=== PATIENT | female | born 1970 | race Caucasian/White ===

== ENCOUNTER → 2018-10-24 13:30 | Oncology outpatient (ONC) | payer MEDICAID, SELFPAY ==
--- NOTE | 2018-08-15 08:14 | ONC.CONS ---
History of Present Illness - Data of Consult Consult date: 08/15/18 Requesting Physician: Dr. Ruby Cesar Primary Care Provider: Ruby Cesar MD - Consult Narrative Reason for consult: Right breast ER positive OR positive HER2 negative cancer. Narrative: Carole Leggett is a 48 year old female without other significant medical problems. She came in here today accompanied by her friend Carole. Patient said that about a year ago (2016), patient noticed a dent on the right breast, most visible when leaning forward. However she did not seek any medical attention because of lack of medical insurance. Recently she read about the meaning of the dent of the breast online and decided to seek medical attention. She is now enrolled in [employer]. She was seen by Dr. Ruby Cesar at [facility]. On July 18, 2018 patient underwent digital mammography with tomosynthesis and diagnostic bilateral/breast ultrasound study at the [facility] in [facility]. The mammogram showed a 1.6 cm spiculated mass in the upper inner right breast, anterior depth. Associated skin retraction was noted. A smoothly contoured 13 mm nodule present in the upper outer right breast. On the left, an 11 mm obscured nodule present in the central lateral left breast. And the ultrasound study showed that on the right side, there is an irregular hypoechoic solid mass with increased vascularity 2 o'clock right breast, areolar margin, 1.8 x 1.3 x 1.0 cm. At a distance 2.8 cm lateral to this mass, a 2nd hypoechoic mass with a caustic shadowing present, 12 o'clock radians measuring 5.1 mm. In the upper outer right breast, a unitlocular anechoic cyst present measuring 1.4 x 1.6 x 0.6 cm. A smaller cyst present at the 7 o'clock right breast measuring 8 mm. On the left side, a benign uniloculated anechoic cyst present at 2 o'clock measuring 1.4 x 1.1 x 0.5 cm. No solid masses. On July 25, 2018, patient underwent ultrasound-guided core biopsy of the right breast lesion. The final diagnosis from biopsy of the lesion at 2 o'clock showed invasive adenocarcinoma, low grade (4/9), 8 mm in greatest length, without lymphovascular invasion, with presence of ductal carcinoma in-situ which is solid type, with low to intermediate nuclear grade, without comedonecrosis. Immunohistochemistry of the invasive component showed ER positive (strong intensity 3+, more than 90%), OR positive (3+, strong 60%), Ki 67 high (40%) and HER2 by IHC equivocal (2+, moderate partial membrane staining in 50% cells), and HER2 by FISH negative for gene amplification (HER2:CEP17 ratio 1.2, 4.15 mean HER2 signals per nucleus). Biopsy from 12 o'clock showed benign breast tissue and negative for in-situ or invasive malignancy. Clinically patient denies any fatigue, musculoskeletal pain, shortness of breath or chest pain. She denies any abdominal pain, diarrhea, or constipation. Patient does report weight loss over the past 1 month which she attributed to walking as well as cutting out lot of junk food and is veggi. Patient presents here today to establish care. She has already scheduled to see Dr. Pacheco today, and to see Dr. Herrera next week. Vera Ousna, DO Patient reports pain?: No Home Medications and Allergies Home Medications Medication Instructions Recorded Confirmed Type [id number] 08/15/18 History Allergies Allergy/AdvReac Type Severity Reaction Status Date / Time No Known Drug Allergies Allergy Verified 08/15/18 08:22 Medical History - Medical, Surgical, Family History Surgical History: Surgical History (Last Reviewed 08/15/18 @ 09:07 by Cindy Son MD) History of third molar tooth extraction Status post surgery Onset Date: 08/05/15 Status post tubal ligation Family History: Family History (Last Reviewed 08/15/18 @ 09:07 by Cindy Son MD) Grandmother Colon cancer Grandfather Esophageal cancer Review of Systems All systems PM: reviewed and no additional remarkable complaints except as stated Exam Vital signs: Temperature 98.9? pulse rate 67, respiratory rate 18, blood pressure 132/77, oxygenation 100% on room air, weight 77.0 kilos, height 165.0 cm, ECOG 0 Narrative: Constitutional: Well developed, well nourished, not in any acute respiratory distress, average body habitus, well groomed, pleasant and cooperative, accompanied by her friend Carole. HEENT: Normocephalic atraumatic. Extraocular muscle movement intact. Pupils equal, round, and reactive to light and accommodations (PERRLA). Anicteric sclera. moderate hearing difficulty; Oral mucus membrane moist and without ulcers. Neck: Supple, symmetrical, and tracheal midline; No palpable thyromegaly and no palpable lymph nodes. Respiratory: No use of accessory muscles. Clear to auscultation, and no wheezes or rales or rubs. Cardiovascular: Regular rate and rhythm, S1 and S2 normal, no murmurs gallops or rubs. No JVD. No pitting edema of lower extremities. Abdomen: Soft, nontender, non-distended, bowel sounds normal, no palpable organomegaly, no hernia, no palpable masses. Lower extremities: No palpable pedal edema. Lymphatic: no palpable lymph nodes in the neck, axillae, or groins. Musculoskeletal: normal gait and station, no clubbing, no cyanosis, no pitting edema. Skin: no rashes, no ulcers, no petechiae Neurological: Awake and alert and oriented x3. CN II-XII grossly intact. No focal motor or sensory deficit. Psychiatric: Good judgment, good insight, normal affect, normal thought process, cooperative, no depression, no anxiety. Breast exam: right: a linear clear dent across from nipple in a superior and inner direction, about 5 cm in length. Biopsy needle site note. All right breast nodular feeling. No enlarged lymph nodes in the right axilla; left side: no nipple retraction, no skin changes, no palpable nodules or masses, no palpable lymph nodes in the left axilla. All physical examinations are chaperoned. Results - Labs No lab results to review today. - Imaging Additional studies: Procedures BILAT ENDOS OCC TUBE NEC (11/22/09) Laparoscopy (08/05/15) Other dilation and curettage (08/05/15) Assessment and Plan (1) Breast cancer, right breast I explained to the patient about her recently diagnosed right breast invasive ductal carcinoma. I pointed out that based on the available information, she has a stage IA (cT1c cN0 cM0), ER pos, OR pos, HER neg, Node neg. I described that for early stage breast cancer, the sequence of management will include surgical resection (mastectomy versus lumpectomy), with/without chemotherapy, and with/without radiation treatment (depending on surgery). I specifically talked with her about the need for chemotherapy. She may or may not need chemotherapy based on the analysis the risk of recurrence. We usually will do 21-gene recurrence score (Oncotype DX ). If the score is high enough, for example, 26 or higher, adjuvant chemotherapy will be needed. If the score is low enough, for example, 20 or lower, chemotherapy is not indicated. If the score falls between 21 and 25, we would discuss further about the chemotherapy. All above is based on the recent [employer] study results. Patient has already scheduled to visit to see Dr. Pacheco today, and to see Dr. Mario Herrera next week. I will have her come back about 2 weeks after the surgery for further discussion.
--- NOTE | 2018-08-15 08:19 | P.CONONC_ITS ---
History of Present Illness - Data of Consult Consult date: 08/15/18 Requesting Physician: Dr. Ruby Cesar Primary Care Provider: Ruby Cesra MD - Consult Narrative Reason for consult: Right breast ER positive WA positive HER2 negative cancer. Narrative: Carole Leggett is a 48 year old female without other significant medical problems. She came in here today accompanied by her friend Carole. Patient said that about a year ago (2016), patient noticed a dent on the right breast, most visible when leaning forward. However she did not seek any medical attention because of lack of medical insurance. Recently she read about the meaning of the dent of the breast online and decided to seek medical attention. She is now enrolled in [employer]. She was seen by Dr. Ruby Cesar at [facility]. On July 18, 2018 patient underwent digital mammography with tomosynthesis and diagnostic bilateral/breast ultrasound study at the [facility] in [facility]. The mammogram showed a 1.6 cm spiculated mass in the upper inner right breast, anterior depth. Associated skin retraction was noted. A smoothly contoured 13 mm nodule present in the upper outer right breast. On the left, an 11 mm obscured nodule present in the central lateral left breast. And the ultrasound study showed that on the right side, there is an irregular hypoechoic solid mass with increased vascularity 2 o'clock right breast, areolar margin, 1.8 x 1.3 x 1.0 cm. At a distance 2.8 cm lateral to this mass, a 2nd hypoechoic mass with a caustic shadowing present, 12 o'clock radians measuring 5.1 mm. In the upper outer right breast, a unitlocular anechoic cyst present measuring 1.4 x 1.6 x 0.6 cm. A smaller cyst present at the 7 o'clock right breast measuring 8 mm. On the left side, a benign uniloculated anechoic cyst present at 2 o'clock measuring 1.4 x 1.1 x 0.5 cm. No solid masses. On July 25, 2018, patient underwent ultrasound-guided core biopsy of the right breast lesion. 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 Immunohistochemistry of the invasive component showed ER positive (strong intensity 3+, more than 90%), WA positive (3+, strong 60%), Ki 67 high (40%) and HER2 by IHC equivocal (2+, moderate partial membrane staining in 50% cells), and HER2 by FISH negative for gene amplification (HER2:CEP17 ratio 1.2, 4.15 mean HER2 signals per nucleus). Biopsy from 12 o'clock showed benign breast tissue and negative for in-situ or invasive malignancy. Clinically patient denies any fatigue, musculoskeletal pain, shortness of breath or chest pain. She denies any abdominal pain, diarrhea, or constipation. Patient does report weight loss over the past 1 month which she attributed to walking as well as cutting out lot of junk food and is veggi. Patient presents here today to establish care. She has already scheduled to see Dr. Pacheco today, and to see Dr. Herrera next week. Vera Osuna, DO Patient reports pain?: No Home Medications and Allergies Home Medications Medication Instructions Recorded Confirmed Type [id number] 08/15/18 History Allergies Allergy/AdvReac Type Severity Reaction Status Date / Time No Known Drug Allergies Allergy Verified 08/15/18 08:22 Medical History - Medical, Surgical, Family History Surgical History: Surgical History (Last Reviewed 08/15/18 @ 09:07 by Cindy Son MD) History of third molar tooth extraction Status post surgery Onset Date: 08/05/15 Status post tubal ligation Family History: Family History (Last Reviewed 08/15/18 @ 09:07 by Cindy Son MD) Grandmother Colon cancer Grandfather Esophageal cancer Review of Systems All systems PM: reviewed and no additional remarkable complaints except as stated Exam Vital signs: Temperature 98.9? pulse rate 67, respiratory rate 18, blood pressure 132/77, oxygenation 100% on room air, weight 77.0 kilos, height 165.0 cm, ECOG 0 Narrative: Constitutional: Well developed, well nourished, not in any acute respiratory distress, average body habitus, well groomed, pleasant and cooperative, accompanied by her friend Carole. HEENT: Normocephalic atraumatic. Extraocular muscle movement intact. Pupils equal, round, and reactive to light and accommodations (PERRLA). Anicteric sclera. moderate hearing difficulty; Oral mucus membrane moist and without ulcers. Neck: Supple, symmetrical, and tracheal midline; No palpable thyromegaly and no palpable lymph nodes. Respiratory: No use of accessory muscles. Clear to auscultation, and no wheezes or rales or rubs. Cardiovascular: Regular rate and rhythm, S1 and S2 normal, no murmurs gallops or rubs. No JVD. No pitting edema of lower extremities. Abdomen: Soft, nontender, non-distended, bowel sounds normal, no palpable organomegaly, no hernia, no palpable masses. Lower extremities: No palpable pedal edema. Lymphatic: no palpable lymph nodes in the neck, axillae, or groins. Musculoskeletal: normal gait and station, no clubbing, no cyanosis, no pitting edema. Skin: no rashes, no ulcers, no petechiae Neurological: Awake and alert and oriented x3. CN II-XII grossly intact. No focal motor or sensory deficit. Psychiatric: Good judgment, good insight, normal affect, normal thought process , cooperative, no depression, no anxiety. Breast exam: right: a linear clear dent across from nipple in a superior and inner direction, about 5 cm in length. Biopsy needle site note. All right breast nodular feeling. No enlarged lymph nodes in the right axilla; left side: no nipple retraction, no skin changes, no palpable nodules or masses, no palpable lymph nodes in the left axilla. All physical examinations are chaperoned. Results - Labs No lab results to review today. - Imaging Additional studies: Procedures BILAT ENDOS OCC TUBE NEC (11/22/09) Laparoscopy (08/05/15) Other dilation and curettage (08/05/15) Assessment and Plan (1) Breast cancer, right breast I explained to the patient about her recently diagnosed right breast invasive ductal carcinoma. I pointed out that based on the available information, she has a stage IA (cT1c cN0 cM0), ER pos, WA pos, HER neg, Node neg. I described that for early stage breast cancer, the sequence of management will include surgical resection (mastectomy versus lumpectomy), with/without chemotherapy, and with/without radiation treatment (depending on surgery). I specifically talked with her about the need for chemotherapy. She may or may not need chemotherapy based on the analysis the risk of recurrence. We usually will do 21-gene recurrence score (Oncotype DX ). If the score is high enough, for example, 26 or higher, adjuvant chemotherapy will be needed. If the score is low enough, for example, 20 or lower, chemotherapy is not indicated. If the score falls between 21 and 25, we would discuss further about the chemotherapy. All above is based on the recent [employer] study results. Patient has already scheduled to visit to see Dr. Pacheco today, and to see Dr. Mario Herrera next week. I will have her come back about 2 weeks after the surgery for further discussion.
[2018-08-15 09:00] VITALS: BP 132/77; PULSE 67; RESP 18; TEMP 37.2; O2SAT 100
--- NOTE | 2018-08-15 09:46 | ONC.NAV ---
Description: New Breast Pt Intro Activity: Met with pt only briefly after her initial provider consult visit today. Pt resides on [facility], and has been in contact already with the Breast Navigator at [facility], and will be meeting with the surgeon there later this morning. BIBLICAL LANGUAGES PROFESSOR briefly discussed the resources that we have for [place] patients, including the Medical Priority Boarding pass, the lodging program, taxi service from the [employer], and the Medical Relief Fund. Provided the Navigation service card, and agreed to meet again when she returns to clinic, in order to continue assessment of pt's coping and support needs. Plan: BIBLICAL LANGUAGES PROFESSOR will f/u with completing a Medical Priority Boarding Pass and email it to her later today.
--- NOTE | 2018-08-18 14:21 | ONC.NAV ---
Description: [employer] Tx Plan Tracking Form Activity: Completed this form and faxed back to [employer].
--- NOTE | 2018-08-19 09:05 | ONC.NAV ---
Description: [facility] Medical Priority Boarding Pass Activity: CERTIFIED ALCOHOL COUNSELOR emailed pt her Patient Copy of the Medical Priority Boarding pass. No further needs identified at this time.
--- NOTE | 2018-09-25 12:34 | ONC.SCHED ---
PATHOLOGY PROGRESS: Request for Oncotype submtted by Cristel @ [facility] on 09/22/18. Await results.
--- NOTE | 2018-09-26 09:00 | ONC.SCHED ---
PATHOLOGY PROGRESS: Received Oncotype DX BRCA 1&2 Results 09/26/18. Order complete.
[2018-09-26 09:28] LABS: Add Manual Diff / Slide Review NO; Basophils Percent Auto 0.6 % (0-2); Hematocrit 33.9 % (36-46); Hemoglobin 11.5 g/dL (12.0-16.0); Lymphocytes Percent Auto 15.9 % (25-40); Mean Corpuscular HGB Conc 33.9 % (30-36); Mean Corpuscular Hemoglobin 30.5 PG (26-34); Monocytes Percent Auto 9.5 % (3-14); Neutrophils Absolute Auto 5000 /uL (3000-5900); Platelet Count 232 X10^3/uL (150-400); Red Blood Cell Count 3.76 X10^6/uL (4.0-5.2); White Blood Cell Count 6.8 X10^3/uL (4.5-11.0)
[2018-09-26 09:50] LABS: Alanine Aminotransferase 17 IU/L (9-52); Albumin 4.1 g/dL (3.5-5.0); Albumin Globulin Ratio 1.5 (1.0-2.8); Alkaline Phosphatase 45 U/L (38-126); Aspartate Aminotransferase 18 IU/L (14-36); Bilirubin Total 0.3 mg/dL (0.2-1.3); Blood Urea Nitrogen 10 mg/dL (7-17); Carbon Dioxide 28 mmol/L (22-32); Chloride 104 mmol/L (98-107); Estimated Glomerular Filt Rate > 60.0 mL/min (>60); Globulin 2.7 g/dL (1.7-4.1); Glucose 94 mg/dL (70-100); HEMOLYSIS < 15 (0-50); Potassium 4.2 mmol/L (3.4-5.1); Sodium 142 mmol/L (137-145); Total Protein 6.8 g/dL (6.3-8.2)
[2018-09-26 11:13] VITALS: BP 113/71; PULSE 63; RESP 16; TEMP 36.7; O2SAT 100
--- NOTE | 2018-09-26 11:21 | ONC.PN ---
PN -Subjective Interval history: Patient underwent right breast simple mastectomy with sentinel lymph node biopsy on September 09, [address] Pacheco. The final surgical pathology reviewed invasive adenocarcinoma, low grade, 1.5 x 1.4 x 1.2 cm, no DCIS, unifocal, negative margins, no lymphovascular invasion, negative sentinel lymph node, and AJCC 8th staging pT1c N0 (sentinel). Postoperatively this case was discussed at [facility]. No radiation treatment was recommended. Oncotype DX was recommended for determination of possible chemotherapy. The Oncotype DX score came back 22. Clinically patient is currently undergoing reconstruction of the right breast. No other new events. Oncological history Carole Leggett is a 48 year old female without other significant medical problems. She came in here today accompanied by her friend Carole. Patient said that about a year ago (2016), patient noticed a dent on the right breast, most visible when leaning forward. However she did not seek any medical attention because of lack of medical insurance. Recently she read about the meaning of the dent of the breast online and decided to seek medical attention. She is now enrolled in [employer]. She was seen by Dr. Ruby Cesar at [facility]. On July 18, 2018 patient underwent digital mammography with tomosynthesis and diagnostic bilateral/breast ultrasound study at the [facility] in [facility]. The mammogram showed a 1.6 cm spiculated mass in the upper inner right breast, anterior depth. Associated skin retraction was noted. A smoothly contoured 13 mm nodule present in the upper outer right breast. On the left, an 11 mm obscured nodule present in the central lateral left breast. And the ultrasound study showed that on the right side, there is an irregular hypoechoic solid mass with increased vascularity 2 o'clock right breast, areolar margin, 1.8 x 1.3 x 1.0 cm. At a distance 2.8 cm lateral to this mass, a 2nd hypoechoic mass with a caustic shadowing present, 12 o'clock radians measuring 5.1 mm. In the upper outer right breast, a unitlocular anechoic cyst present measuring 1.4 x 1.6 x 0.6 cm. A smaller cyst present at the 7 o'clock right breast measuring 8 mm. On the left side, a benign uniloculated anechoic cyst present at 2 o'clock measuring 1.4 x 1.1 x 0.5 cm. No solid masses. On July 25, 2018, patient underwent ultrasound-guided core biopsy of the right breast lesion. The final diagnosis from biopsy of the lesion at 2 o'clock showed invasive adenocarcinoma, low grade (4/9), 8 mm in greatest length, without lymphovascular invasion, with presence of ductal carcinoma in-situ which is solid type, with low to intermediate nuclear grade, without comedonecrosis. Immunohistochemistry of the invasive component showed ER positive (strong intensity 3+, more than 90%), ND positive (3+, strong 60%), Ki 67 high (40%) and HER2 by IHC equivocal (2+, moderate partial membrane staining in 50% cells), and HER2 by FISH negative for gene amplification (HER2:CEP17 ratio 1.2, 4.15 mean HER2 signals per nucleus). Biopsy from 12 o'clock showed benign breast tissue and negative for in-situ or invasive malignancy. Clinically patient denies any fatigue, musculoskeletal pain, shortness of breath or chest pain. She denies any abdominal pain, diarrhea, or constipation. Patient does report weight loss over the past 1 month which she attributed to walking as well as cutting out lot of junk food and is veggi. Patient presents here today to establish care. She has already scheduled to see Dr. Pacheco today, and to see Dr. Herrera next week. Home Medications and Allergies Home Medications Medication Instructions Recorded Confirmed Type [id number] 1 tab PO DAILY 08/15/18 09/26/18 History tamoxifen 20 mg PO DAILY 3 Days #90 tab 09/26/18 Rx Allergies Allergy/AdvReac Type Severity Reaction Status Date / Time No Known Drug Allergies Allergy Verified 08/15/18 08:22 Exam Vital signs: Last Vital Signs Temp 98.0 F 09/26/18 11:13 Pulse 63 09/26/18 11:13 Resp 16 09/26/18 11:13 BP 113/71 09/26/18 11:13 Pulse Ox 100 09/26/18 11:13 ECOG 1 Narrative: Constitutional: Well developed, well nourished, not in any acute respiratory distress, average body habitus, well groomed, pleasant and cooperative, HEENT: Normocephalic atraumatic. Extraocular muscle movement intact. Pupils equal, round, and reactive to light and accommodations (PERRLA). Anicteric sclera. moderate hearing difficulty; Oral mucus membrane moist and without ulcers. Neck: Supple, symmetrical, and tracheal midline; No palpable thyromegaly and no palpable lymph nodes. Respiratory: No use of accessory muscles. Clear to auscultation, and no wheezes or rales or rubs. Cardiovascular: Regular rate and rhythm, S1 and S2 normal, no murmurs gallops or rubs. No JVD. No pitting edema of lower extremities. Abdomen: Soft, nontender, non-distended, bowel sounds normal, no palpable organomegaly, no hernia, no palpable masses. Lower extremities: No palpable pedal edema. Lymphatic: no palpable lymph nodes in the neck, axillae, or groins. Musculoskeletal: normal gait and station, no clubbing, no cyanosis, no pitting edema. Skin: no rashes, no ulcers, no petechiae Neurological: Awake and alert and oriented x3. CN II-XII grossly intact. No focal motor or sensory deficit. Psychiatric: Good judgment, good insight, normal affect, normal thought process, cooperative, no depression, no anxiety. Breast exam: deferred Results - Labs Laboratory Last Values WBC 6.8 X10^3/uL (4.5-11.0) 09/26/18 09:17 RBC 3.76 X10^6/uL (4.0-5.2) L 09/26/18 09:17 Hgb 11.5 g/dL (12.0-16.0) L 09/26/18 09:17 Hct 33.9 % (36-46) L 09/26/18 09:17 MCV 90.0 fL (80-100) 09/26/18 09:17 MCH 30.5 PG (26-34) 09/26/18 09:17 MCHC 33.9 % (30-36) 09/26/18 09:17 RDW 14.0 % (11.6-14.8) 09/26/18 09:17 Plt Count 232 X10^3/uL (150-400) 09/26/18 09:17 Neut % (Auto) 73.0 % (50-75) 09/26/18 09:17 Lymph % (Auto) 15.9 % (25-40) L 09/26/18 09:17 [place] % (Auto) 9.5 % (3-14) 09/26/18 09:17 Eos % (Auto) 1.0 % (2-4) L 09/26/18 09:17 Baso % (Auto) 0.6 % (0-2) 09/26/18 09:17 Neut # (Auto) 5000 /uL (3087-9597) 09/26/18 09:17 Sodium 142 mmol/L (137-145) 09/26/18 09:17 Potassium 4.2 mmol/L (3.4-5.1) 09/26/18 09:17 Chloride 104 mmol/L (98-107) 09/26/18 09:17 Carbon Dioxide 28 mmol/L (22-32) 09/26/18 09:17 BUN 10 mg/dL (7-17) 09/26/18 09:17 Creatinine 0.50 mg/dL (0.52-1.04) L 09/26/18 09:17 Estimated GFR > 60.0 mL/min (>60) 09/26/18 09:17 BUN/Creatinine Ratio 20.0 (6-22) 09/26/18 09:17 Glucose 94 mg/dL (70-100) 09/26/18 09:17 Calcium 9.0 mg/dL (8.4-10.2) 09/26/18 09:17 Total Bilirubin 0.3 mg/dL (0.2-1.3) 09/26/18 09:17 AST 18 IU/L (14-36) 09/26/18 09:17 ALT 17 IU/L (9-52) 09/26/18 09:17 Alkaline Phosphatase 45 U/L (38-126) 09/26/18 09:17 Total Protein 6.8 g/dL (6.3-8.2) 09/26/18 09:17 Albumin 4.1 g/dL (3.5-5.0) 09/26/18 09:17 Globulin 2.7 g/dL (1.7-4.1) 09/26/18 09:17 Albumin/Globulin Ratio 1.5 (1.0-2.8) 09/26/18 09:17 - Imaging Additional studies: Procedures BILAT ENDOS OCC TUBE NEC (11/22/09) Laparoscopy (08/05/15) Other dilation and curettage (08/05/15) Assessment and Plan (1) Breast cancer, right breast Assessment and Plan: I explained to the patient about the Oncotype DX score. Based on the most recent [employer] study, given the low risk feature of her primary right breast cancer, I would not recommend any adjuvant chemotherapy. I talked with her that she will need endocrine treatment for a total of 5 years. She is premenopausal. I would start tamoxifen 20 mg once a day together with aspirin 81 mg once a day. I will bring the patient back for 1 month to discuss about the tolerability. If she tolerates well in the future will see the patient every 3 months.
--- NOTE | 2018-09-26 11:24 | P.PNONC_ITS ---
PN -Subjective Interval history: Patient underwent right breast simple mastectomy with sentinel lymph node biopsy on September 09, [address] Pacheco. The final surgical pathology reviewed invasive adenocarcinoma, low grade, 1.5 x 1.4 x 1.2 cm, no DCIS, unifocal, negative margins, no lymphovascular invasion, negative sentinel lymph node, and AJCC 8th staging pT1c N0 (sentinel). Postoperatively this case was discussed at [facility]. No radiation treatment was recommended. Oncotype DX was recommended for determination of possible chemotherapy. The Oncotype DX score came back 22. Clinically patient is currently undergoing reconstruction of the right breast. No other new events. Oncological history Carole Leggett is a 48 year old female without other significant medical problems. She came in here today accompanied by her friend Carole. Patient said that about a year ago (2016), patient noticed a dent on the right breast, most visible when leaning forward. However she did not seek any medical attention because of lack of medical insurance. Recently she read about the meaning of the dent of the breast online and decided to seek medical attention. She is now enrolled in [employer]. She was seen by Dr. Ruby Cesar at [facility]. On July 18, 2018 patient underwent digital mammography with tomosynthesis and diagnostic bilateral/breast ultrasound study at the [facility] in [facility]. The mammogram showed a 1.6 cm spiculated mass in the upper inner right breast, anterior depth. Associated skin retraction was noted. A smoothly contoured 13 mm nodule present in the upper outer right breast. On the left, an 11 mm obscured nodule present in the central lateral left breast. And the ultrasound study showed that on the right side, there is an irregular hypoechoic solid mass with increased vascularity 2 o'clock right breast, areolar margin, 1.8 x 1.3 x 1.0 cm. At a distance 2.8 cm lateral to this mass, a 2nd hypoechoic mass with a caustic shadowing present, 12 o'clock radians measuring 5.1 mm. In the upper outer right breast, a unitlocular anechoic cyst present measuring 1.4 x 1.6 x 0.6 cm. A smaller cyst present at the 7 o'clock right breast measuring 8 mm. On the left side, a benign uniloculated anechoic cyst present at 2 o'clock measuring 1.4 x 1.1 x 0.5 cm. No solid masses. On July 25, 2018, patient underwent ultrasound-guided core biopsy of the right breast lesion. 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 Immunohistochemistry of the invasive component showed ER positive (strong intensity 3+, more than 90%), [place] positive (3+, strong 60%), Ki 67 high (40%) and HER2 by IHC equivocal (2+, moderate partial membrane staining in 50% cells), and HER2 by FISH negative for gene amplification (HER2:CEP17 ratio 1.2, 4.15 mean HER2 signals per nucleus). Biopsy from 12 o'clock showed benign breast tissue and negative for in-situ or invasive malignancy. Clinically patient denies any fatigue, musculoskeletal pain, shortness of breath or chest pain. She denies any abdominal pain, diarrhea, or constipation. Patient does report weight loss over the past 1 month which she attributed to walking as well as cutting out lot of junk food and is veggi. Patient presents here today to establish care. She has already scheduled to see Dr. Pacheco today, and to see Dr. Herrera next week. Home Medications and Allergies Home Medications Medication Instructions Recorded Confirmed Type [id number] 1 tab PO DAILY 08/15/18 09/26/18 History tamoxifen 20 mg PO DAILY 3 Days #90 tab 09/26/18 Rx Allergies Allergy/AdvReac Type Severity Reaction Status Date / Time No Known Drug Allergies Allergy Verified 08/15/18 08:22 Exam Vital signs: Last Vital Signs Temp 98.0 F 09/26/18 11:13 Pulse 63 09/26/18 11:13 Resp 16 09/26/18 11:13 BP 113/71 09/26/18 11:13 Pulse Ox 100 09/26/18 11:13 ECOG 1 Narrative: Constitutional: Well developed, well nourished, not in any acute respiratory distress, average body habitus, well groomed, pleasant and cooperative, HEENT: Normocephalic atraumatic. Extraocular muscle movement intact. Pupils equal, round, and reactive to light and accommodations (PERRLA). Anicteric sclera. moderate hearing difficulty; Oral mucus membrane moist and without ulcers. Neck: Supple, symmetrical, and tracheal midline; No palpable thyromegaly and no palpable lymph nodes. Respiratory: No use of accessory muscles. Clear to auscultation, and no wheezes or rales or rubs. Cardiovascular: Regular rate and rhythm, S1 and S2 normal, no murmurs gallops or rubs. No JVD. No pitting edema of lower extremities. Abdomen: Soft, nontender, non-distended, bowel sounds normal, no palpable organomegaly, no hernia, no palpable masses. Lower extremities: No palpable pedal edema. Lymphatic: no palpable lymph nodes in the neck, axillae, or groins. Musculoskeletal: normal gait and station, no clubbing, no cyanosis, no pitting edema. Skin: no rashes, no ulcers, no petechiae Neurological: Awake and alert and oriented x3. CN II-XII grossly intact. No focal motor or sensory deficit. Psychiatric: Good judgment, good insight, normal affect, normal thought process , cooperative, no depression, no anxiety. Breast exam: deferred Results - Labs Laboratory Last Values WBC 6.8 X10^3/uL (4.5-11.0) 09/26/18 09:17 RBC 3.76 X10^6/uL (4.0-5.2) L 09/26/18 09:17 Hgb 11.5 g/dL (12.0-16.0) L 09/26/18 09:17 Hct 33.9 % (36-46) L 09/26/18 09:17 MCV 90.0 fL (80-100) 09/26/18 09:17 MCH 30.5 PG (26-34) 09/26/18 09:17 MCHC 33.9 % (30-36) 09/26/18 09:17 RDW 14.0 % (11.6-14.8) 09/26/18 09:17 Plt Count 232 X10^3/uL (150-400) 09/26/18 09:17 Neut % (Auto) 73.0 % (50-75) 09/26/18 09:17 Lymph % (Auto) 15.9 % (25-40) L 09/26/18 09:17 [place] % (Auto) 9.5 % (3-14) 09/26/18 09:17 Eos % (Auto) 1.0 % (2-4) L 09/26/18 09:17 Baso % (Auto) 0.6 % (0-2) 09/26/18 09:17 Neut # (Auto) 5000 /uL (8270-7724) 09/26/18 09:17 Sodium 142 mmol/L (137-145) 09/26/18 09:17 Potassium 4.2 mmol/L (3.4-5.1) 09/26/18 09:17 Chloride 104 mmol/L (98-107) 09/26/18 09:17 Carbon Dioxide 28 mmol/L (22-32) 09/26/18 09:17 BUN 10 mg/dL (7-17) 09/26/18 09:17 Creatinine 0.50 mg/dL (0.52-1.04) L 09/26/18 09:17 Estimated GFR > 60.0 mL/min (>60) 09/26/18 09:17 BUN/Creatinine Ratio 20.0 (6-22) 09/26/18 09:17 Glucose 94 mg/dL (70-100) 09/26/18 09:17 Calcium 9.0 mg/dL (8.4-10.2) 09/26/18 09:17 Total Bilirubin 0.3 mg/dL (0.2-1.3) 09/26/18 09:17 AST 18 IU/L (14-36) 09/26/18 09:17 ALT 17 IU/L (9-52) 09/26/18 09:17 Alkaline Phosphatase 45 U/L (38-126) 09/26/18 09:17 Total Protein 6.8 g/dL (6.3-8.2) 09/26/18 09:17 Albumin 4.1 g/dL (3.5-5.0) 09/26/18 09:17 Globulin 2.7 g/dL (1.7-4.1) 09/26/18 09:17 Albumin/Globulin Ratio 1.5 (1.0-2.8) 09/26/18 09:17 - Imaging Additional studies: Procedures BILAT ENDOS OCC TUBE NEC (11/22/09) Laparoscopy (08/05/15) Other dilation and curettage (08/05/15) Assessment and Plan (1) Breast cancer, right breast Assessment and Plan: I explained to the patient about the Oncotype DX score. Based on the most recent [facility] study, given the low risk feature of her primary right breast cancer, I would not recommend any adjuvant chemotherapy. I talked with her that she will need endocrine treatment for a total of 5 years. She is premenopausal. I would start tamoxifen 20 mg once a day together with aspirin 81 mg once a day. I will bring the patient back for 1 month to discuss about the tolerability. If she tolerates well in the future will see the patient every 3 months.
--- NOTE | 2018-09-26 13:38 | PC.NURSE ---
left msg for Sacha at [facility] regarding Rx Tamoxifen issued. Clarification needing on frequency. Per Dr Son's notes pt is to take 20mg po daily.
[2018-10-24 13:54] LABS: Add Manual Diff / Slide Review NO; Basophils Percent Auto 0.7 % (0-2); Eosinophils Percent Auto 0.5 % (2-4); Hemoglobin 11.9 g/dL (12.0-16.0); Lymphocytes Percent Auto 24.3 % (25-40); Mean Corpuscular Hemoglobin 30.6 PG (26-34); Mean Corpuscular Volume 90.1 fL (80-100); Monocytes Percent Auto 9.9 % (3-14); Neutrophils Absolute Auto 4500 /uL (1500-7000); Neutrophils Percent Auto 64.6 % (50-75); Platelet Count 181 X10^3/uL (150-400); Red Blood Cell Count 3.89 X10^6/uL (4.0-5.2); Red Cell Distribution Width 14.8 % (11.6-14.8)
--- NOTE | 2018-10-24 14:05 | ONC.PN ---
PN -Subjective Interval history: She started taking tamoxifen on 10/06/2018. She presents here today for evaluation of tolerability. Overall patient said that she has been doing well. Patient said that she feels a little warm. But she denies any hot flashes. Denies night sweats. Patient reports good energy good appetite. No nausea no vomiting. No diarrhea and no constipation. Currently patient has been followed by Dr. Castellanos for breast reconstruction. Oncological history Carole Leggett is a 48 year old female without other significant medical problems. She came in here today accompanied by her friend Carole. Patient said that about a year ago (2016), patient noticed a dent on the right breast, most visible when leaning forward. However she did not seek any medical attention because of lack of medical insurance. Recently she read about the meaning of the dent of the breast online and decided to seek medical attention. She is now enrolled in [employer]. She was seen by Dr. Ruby Cesar at [facility]. On July 18, 2018 patient underwent digital mammography with tomosynthesis and diagnostic bilateral/breast ultrasound study at the [facility] in [facility]. The mammogram showed a 1.6 cm spiculated mass in the upper inner right breast, anterior depth. Associated skin retraction was noted. A smoothly contoured 13 mm nodule present in the upper outer right breast. On the left, an 11 mm obscured nodule present in the central lateral left breast. And the ultrasound study showed that on the right side, there is an irregular hypoechoic solid mass with increased vascularity 2 o'clock right breast, areolar margin, 1.8 x 1.3 x 1.0 cm. At a distance 2.8 cm lateral to this mass, a 2nd hypoechoic mass with a caustic shadowing present, 12 o'clock radians measuring 5.1 mm. In the upper outer right breast, a unitlocular anechoic cyst present measuring 1.4 x 1.6 x 0.6 cm. A smaller cyst present at the 7 o'clock right breast measuring 8 mm. On the left side, a benign uniloculated anechoic cyst present at 2 o'clock measuring 1.4 x 1.1 x 0.5 cm. No solid masses. On July 25, 2018, patient underwent ultrasound-guided core biopsy of the right breast lesion. The final diagnosis from biopsy of the lesion at 2 o'clock showed invasive adenocarcinoma, low grade (4/9), 8 mm in greatest length, without lymphovascular invasion, with presence of ductal carcinoma in-situ which is solid type, with low to intermediate nuclear grade, without comedonecrosis. Immunohistochemistry of the invasive component showed ER positive (strong intensity 3+, more than 90%), MI positive (3+, strong 60%), Ki 67 high (40%) and HER2 by IHC equivocal (2+, moderate partial membrane staining in 50% cells), and HER2 by FISH negative for gene amplification (HER2:CEP17 ratio 1.2, 4.15 mean HER2 signals per nucleus). Biopsy from 12 o'clock showed benign breast tissue and negative for in-situ or invasive malignancy. Patient underwent right breast simple mastectomy with sentinel lymph node biopsy on September 09, [address] Pacheco. The final surgical pathology reviewed invasive adenocarcinoma, low grade, 1.5 x 1.4 x 1.2 cm, no DCIS, unifocal, negative margins, no lymphovascular invasion, negative sentinel lymph node, and AJCC 8th staging pT1c N0 (sentinel). Postoperatively this case was discussed at [facility]. No radiation treatment was recommended. Oncotype DX was recommended for determination of possible chemotherapy. The Oncotype DX score came back 22. No adjuvant chemotherapy indicated. Home Medications and Allergies Home Medications Medication Instructions Recorded Confirmed Type [id number] 1 tab PO DAILY 08/15/18 09/26/18 History Allergies Allergy/AdvReac Type Severity Reaction Status Date / Time No Known Drug Allergies Allergy Verified 08/15/18 08:22 Exam Vital signs: Last Vital Signs Temp 98.0 F 09/26/18 11:13 Pulse 63 09/26/18 11:13 Resp 16 09/26/18 11:13 BP 113/71 09/26/18 11:13 Pulse Ox 100 09/26/18 11:13 ECOG 1 Narrative: Constitutional: WDWN, NAD, average body habitus, well groomed, pleasant and cooperative. HEENT: NCAT, EOMI, PERRLA, anicteric sclera, no hearing difficulty; Oral mucus membrane moist and without ulcers. Neck: Supple, symmetrical, and tracheal midline; No palpable thyromegaly and no palpable lymph nodes. Respiratory: No use of accessory muscles. Clear to auscultation, and no wheezes or rales or rubs. Cardiovascular: Regular rate and rhythm, S1 and S2 normal, no murmurs gallops or rubs. No JVD. No pitting edema of lower extremities. Abdomen: Soft, nontender, non-distended, bowel sounds normal, no palpable organomegaly, no hernia, no palpable masses. Lower extremities: No palpable pedal edema. Lymphatic: no palpable lymph nodes in the neck, axillae, or groins. Musculoskeletal: normal gait and station, no clubbing, no cyanosis, no pitting edema. Skin: no rashes, no ulcers, no petechiae Neurological: Awake and alert and oriented x3. CN II-XII grossly intact. No focal motor or sensory deficit. Psychiatric: Good judgment, good insight, normal affect, normal thought process, cooperative, no depression, no anxiety. Breast Exams: deferred. Results - Labs Laboratory Last Values WBC 7.0 X10^3/uL (4.5-11.0) 10/24/18 13:42 RBC 3.89 X10^6/uL (4.0-5.2) L 10/24/18 13:42 Hgb 11.9 g/dL (12.0-16.0) L 10/24/18 13:42 Hct 35.0 % (36-46) L 10/24/18 13:42 MCV 90.1 fL (80-100) 10/24/18 13:42 MCH 30.6 PG (26-34) 10/24/18 13:42 MCHC 34.0 % (30-36) 10/24/18 13:42 RDW 14.8 % (11.6-14.8) 10/24/18 13:42 Plt Count 181 X10^3/uL (150-400) 10/24/18 13:42 Neut % (Auto) 64.6 % (50-75) 10/24/18 13:42 Lymph % (Auto) 24.3 % (25-40) L 10/24/18 13:42 [place] % (Auto) 9.9 % (3-14) 10/24/18 13:42 Eos % (Auto) 0.5 % (2-4) L 10/24/18 13:42 Baso % (Auto) 0.7 % (0-2) 10/24/18 13:42 Neut # (Auto) 4500 /uL (0636-6863) 10/24/18 13:42 Sodium 142 mmol/L (137-145) 09/26/18 09:17 Potassium 4.2 mmol/L (3.4-5.1) 09/26/18 09:17 Chloride 104 mmol/L (98-107) 09/26/18 09:17 Carbon Dioxide 28 mmol/L (22-32) 09/26/18 09:17 BUN 10 mg/dL (7-17) 09/26/18 09:17 Creatinine 0.50 mg/dL (0.52-1.04) L 09/26/18 09:17 Estimated GFR > 60.0 mL/min (>60) 09/26/18 09:17 BUN/Creatinine Ratio 20.0 (6-22) 09/26/18 09:17 Glucose 94 mg/dL (70-100) 09/26/18 09:17 Calcium 9.0 mg/dL (8.4-10.2) 09/26/18 09:17 Total Bilirubin 0.3 mg/dL (0.2-1.3) 09/26/18 09:17 AST 18 IU/L (14-36) 09/26/18 09:17 ALT 17 IU/L (9-52) 09/26/18 09:17 Alkaline Phosphatase 45 U/L (38-126) 09/26/18 09:17 Total Protein 6.8 g/dL (6.3-8.2) 09/26/18 09:17 Albumin 4.1 g/dL (3.5-5.0) 09/26/18 09:17 Globulin 2.7 g/dL (1.7-4.1) 09/26/18 09:17 Albumin/Globulin Ratio 1.5 (1.0-2.8) 09/26/18 09:17 - Imaging Additional studies: Procedures BILAT ENDOS OCC TUBE NEC (11/22/09) Laparoscopy (08/05/15) Other dilation and curettage (08/05/15) Assessment and Plan (1) Breast cancer, right breast Problem details: 1. Presented with a dent on the right breast for 1+ year. Diagnosed after core biopsy on 07/25/2018: low grade (4/9), LVI negative, DCIS (+), ER positive (strong intensity 3+, more than 90%), MI positive (3+, strong 60%), Ki 67 high (40%), HER2 FISH negative 2. Right breast simple mastectomy with sentinel lymph node biopsy on 09/09/2018: invasive adenocarcinoma, low grade, 1.5 x 1.4 x 1.2 cm, no DCIS, unifocal, negative margins, no lymphovascular invasion, negative sentinel lymph node, and AJCC 8th staging pT1c N0 (sentinel). Oncotype DX: 22. Assessment and Plan: She started taking tamoxifen on 10/06/2018. Up until now, patient has tolerated the tamoxifen very well. No significant postmenopaus-like symptoms. I talked with her that I will continue the tamoxifen as scheduled. Patient will undergo breast reconstruction by Dr. Castellanos. I will see the patient in about 3 months. We will repeat CBC and CMP. I talked with the patient about the aspirin use. If Dr. Castellanos feels comfortable, she can start the aspirin after the surgery.
--- NOTE | 2018-10-24 14:08 | P.PNONC_ITS ---
PN -Subjective Interval history: She started taking tamoxifen on 10/06/2018. She presents here today for evaluation of tolerability. Overall patient said that she has been doing well. Patient said that she feels a little warm. But she denies any hot flashes. Denies night sweats. Patient reports good energy good appetite. No nausea no vomiting. No diarrhea and no constipation. Currently patient has been followed by Dr. Castellanos for breast reconstruction. Oncological history Carole Leggett is a 48 year old female without other significant medical problems. She came in here today accompanied by her friend Carole. Patient said that about a year ago (2016), patient noticed a dent on the right breast, most visible when leaning forward. However she did not seek any medical attention because of lack of medical insurance. Recently she read about the meaning of the dent of the breast online and decided to seek medical attention. She is now enrolled in [employer]. She was seen by Dr. Ruby Cesar at [facility]. On July 18, 2018 patient underwent digital mammography with tomosynthesis and diagnostic bilateral/breast ultrasound study at the [facility] in [facility]. The mammogram showed a 1.6 cm spiculated mass in the upper inner right breast, anterior depth. Associated skin retraction was noted. A smoothly contoured 13 mm nodule present in the upper outer right breast. On the left, an 11 mm obscured nodule present in the central lateral left breast. And the ultrasound study showed that on the right side, there is an irregular hypoechoic solid mass with increased vascularity 2 o'clock right breast, areolar margin, 1.8 x 1.3 x 1.0 cm. At a distance 2.8 cm lateral to this mass, a 2nd hypoechoic mass with a caustic shadowing present, 12 o'clock radians measuring 5.1 mm. In the upper outer right breast, a unitlocular anechoic cyst present measuring 1.4 x 1.6 x 0.6 cm. A smaller cyst present at the 7 o'clock right breast measuring 8 mm. On the left side, a benign uniloculated anechoic cyst present at 2 o'clock measuring 1.4 x 1.1 x 0.5 cm. No solid masses. On July 25, 2018, patient underwent ultrasound-guided core biopsy of the right breast lesion. 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 Immunohistochemistry of the invasive component showed ER positive (strong intensity 3+, more than 90%), [place] positive (3+, strong 60%), Ki 67 high (40%) and HER2 by IHC equivocal (2+, moderate partial membrane staining in 50% cells), and HER2 by FISH negative for gene amplification (HER2:CEP17 ratio 1.2, 4.15 mean HER2 signals per nucleus). Biopsy from 12 o'clock showed benign breast tissue and negative for in-situ or invasive malignancy. Patient underwent right breast simple mastectomy with sentinel lymph node biopsy on September 09, [address] Pacheco. The final surgical pathology reviewed invasive adenocarcinoma, low grade, 1.5 x 1.4 x 1.2 cm, no DCIS, unifocal, negative margins, no lymphovascular invasion, negative sentinel lymph node, and AJCC 8th staging pT1c N0 (sentinel). Postoperatively this case was discussed at [facility]. No radiation treatment was recommended. Oncotype DX was recommended for determination of possible chemotherapy. The Oncotype DX score came back 22. No adjuvant chemotherapy indicated. Home Medications and Allergies Home Medications Medication Instructions Recorded Confirmed Type [id number]-[id number] 1 tab PO DAILY 08/15/18 09/26/18 History Allergies Allergy/AdvReac Type Severity Reaction Status Date / Time No Known Drug Allergies Allergy Verified 08/15/18 08:22 Exam Vital signs: Last Vital Signs Temp 98.0 F 09/26/18 11:13 Pulse 63 09/26/18 11:13 Resp 16 09/26/18 11:13 BP 113/71 09/26/18 11:13 Pulse Ox 100 09/26/18 11:13 ECOG 1 Narrative: Constitutional: WDWN, NAD, average body habitus, well groomed, pleasant and cooperative. HEENT: NCAT, EOMI, PERRLA, anicteric sclera, no hearing difficulty; Oral mucus membrane moist and without ulcers. Neck: Supple, symmetrical, and tracheal midline; No palpable thyromegaly and no palpable lymph nodes. Respiratory: No use of accessory muscles. Clear to auscultation, and no wheezes or rales or rubs. Cardiovascular: Regular rate and rhythm, S1 and S2 normal, no murmurs gallops or rubs. No JVD. No pitting edema of lower extremities. Abdomen: Soft, nontender, non-distended, bowel sounds normal, no palpable organomegaly, no hernia, no palpable masses. Lower extremities: No palpable pedal edema. Lymphatic: no palpable lymph nodes in the neck, axillae, or groins. Musculoskeletal: normal gait and station, no clubbing, no cyanosis, no pitting edema. Skin: no rashes, no ulcers, no petechiae Neurological: Awake and alert and oriented x3. CN II-XII grossly intact. No focal motor or sensory deficit. Psychiatric: Good judgment, good insight, normal affect, normal thought process , cooperative, no depression, no anxiety. Breast Exams: deferred. Results - Labs Laboratory Last Values WBC 7.0 X10^3/uL (4.5-11.0) 10/24/18 13:42 RBC 3.89 X10^6/uL (4.0-5.2) L 10/24/18 13:42 Hgb 11.9 g/dL (12.0-16.0) L 10/24/18 13:42 Hct 35.0 % (36-46) L 10/24/18 13:42 MCV 90.1 fL (80-100) 10/24/18 13:42 MCH 30.6 PG (26-34) 10/24/18 13:42 MCHC 34.0 % (30-36) 10/24/18 13:42 RDW 14.8 % (11.6-14.8) 10/24/18 13:42 Plt Count 181 X10^3/uL (150-400) 10/24/18 13:42 Neut % (Auto) 64.6 % (50-75) 10/24/18 13:42 Lymph % (Auto) 24.3 % (25-40) L 10/24/18 13:42 [place] % (Auto) 9.9 % (3-14) 10/24/18 13:42 Eos % (Auto) 0.5 % (2-4) L 10/24/18 13:42 Baso % (Auto) 0.7 % (0-2) 10/24/18 13:42 Neut # (Auto) 4500 /uL (2725-2654) 10/24/18 13:42 Sodium 142 mmol/L (137-145) 09/26/18 09:17 Potassium 4.2 mmol/L (3.4-5.1) 09/26/18 09:17 Chloride 104 mmol/L (98-107) 09/26/18 09:17 Carbon Dioxide 28 mmol/L (22-32) 09/26/18 09:17 BUN 10 mg/dL (7-17) 09/26/18 09:17 Creatinine 0.50 mg/dL (0.52-1.04) L 09/26/18 09:17 Estimated GFR > 60.0 mL/min (>60) 09/26/18 09:17 BUN/Creatinine Ratio 20.0 (6-22) 09/26/18 09:17 Glucose 94 mg/dL (70-100) 09/26/18 09:17 Calcium 9.0 mg/dL (8.4-10.2) 09/26/18 09:17 Total Bilirubin 0.3 mg/dL (0.2-1.3) 09/26/18 09:17 AST 18 IU/L (14-36) 09/26/18 09:17 ALT 17 IU/L (9-52) 09/26/18 09:17 Alkaline Phosphatase 45 U/L (38-126) 09/26/18 09:17 Total Protein 6.8 g/dL (6.3-8.2) 09/26/18 09:17 Albumin 4.1 g/dL (3.5-5.0) 09/26/18 09:17 Globulin 2.7 g/dL (1.7-4.1) 09/26/18 09:17 Albumin/Globulin Ratio 1.5 (1.0-2.8) 09/26/18 09:17 - Imaging Additional studies: Procedures BILAT ENDOS OCC TUBE NEC (11/22/09) Laparoscopy (08/05/15) Other dilation and curettage (08/05/15) Assessment and Plan (1) Breast cancer, right breast Problem details: 1. Presented with a dent on the right breast for 1+ year. Diagnosed after core biopsy on 07/25/2018: low grade (4/9), LVI negative, DCIS (+), ER positive ( strong intensity 3+, more than 90%), DE positive (3+, strong 60%), Ki 67 high ( 40%), HER2 FISH negative 2. Right breast simple mastectomy with sentinel lymph node biopsy on 09/09/2018 : invasive adenocarcinoma, low grade, 1.5 x 1.4 x 1.2 cm, no DCIS, unifocal, negative margins, no lymphovascular invasion, negative sentinel lymph node, and AJCC 8th staging pT1c N0 (sentinel). Oncotype DX: 22. Assessment and Plan: She started taking tamoxifen on 10/06/2018. Up until now , patient has tolerated the tamoxifen very well. No significant postmenopaus- like symptoms. I talked with her that I will continue the tamoxifen as scheduled. Patient will undergo breast reconstruction by Dr. Castellanos. I will see the patient in about 3 months. We will repeat CBC and CMP. I talked with the patient about the aspirin use. If Dr. Castellanos feels comfortable, she can start the aspirin after the surgery.
[2018-10-24 14:09] LABS: Alanine Aminotransferase 21 IU/L (9-52); Albumin 4.5 g/dL (3.5-5.0); Albumin Globulin Ratio 1.6 (1.0-2.8); Alkaline Phosphatase 46 U/L (38-126); Aspartate Aminotransferase 21 IU/L (14-36); BUN Creatinine Ratio 21.7 (6-22); Bilirubin Total 0.7 mg/dL (0.2-1.3); Blood Urea Nitrogen 13 mg/dL (7-17); Calcium 9.7 mg/dL (8.4-10.2); Carbon Dioxide 27 mmol/L (22-32); Chloride 102 mmol/L (98-107); Estimated Glomerular Filt Rate > 60.0 mL/min (>60); Globulin 2.8 g/dL (1.7-4.1); Glucose 101 mg/dL (70-100); HEMOLYSIS < 15 (0-50); Potassium 4.3 mmol/L (3.4-5.1); Sodium 141 mmol/L (137-145); Total Protein 7.3 g/dL (6.3-8.2)
[2018-10-24 15:53] VITALS: BP 122/67; PULSE 69; RESP 18; TEMP 37.6; O2SAT 100
== END ==
PROVIDERS: Family Provider Family Medicine; PCP Family Medicine; Visit Provider Internal Medicine Hematology & Oncology
DX: C50.211 Malignant neoplasm of upper-inner quadrant of right female breast (principal); Z17.0 Estrogen receptor positive status [ER+]; Z79.810 Long term (current) use of selective estrogen receptor modulators (SERMs)
CPT/HCPCS: 36415; 80053; 85025; 99205; 99214; 99215

== ENCOUNTER → 2019-02-06 17:04 | Outpatient (CLI) | payer MEDICAID, SELFPAY ==
[2019-02-06 18:12] LABS: Add Manual Diff / Slide Review NO; Basophils Absolute Auto 0 /uL (0-100); Basophils Percent Auto 0.4 % (0-2); Eosinophils Absolute Auto 0 /uL (0-450); Eosinophils Percent Auto 0.6 % (2-4); Hemoglobin 11.1 g/dL (12.0-16.0); Lymphocytes Absolute Auto 1800 /uL (1100-4500); Lymphocytes Percent Auto 22.5 % (25-40); Mean Corpuscular HGB Conc 32.7 % (30-36); Mean Corpuscular Hemoglobin 29.7 PG (26-34); Mean Corpuscular Volume 90.9 fL (80-100); Monocytes Absolute Auto 700 /uL (0-900); Monocytes Percent Auto 8.9 % (3-14); Neutrophils Absolute Auto 5300 /uL (1500-7000); Neutrophils Percent Auto 67.6 % (50-75); Platelet Count 194 X10^3/uL (150-400); Red Blood Cell Count 3.74 X10^6/uL (4.0-5.2); Red Cell Distribution Width 14.1 % (11.6-14.8); White Blood Cell Count 7.9 X10^3/uL (4.5-11.0)
== END ==
PROVIDERS: Visit Provider Physician Assistant
DX: N92.4 Excessive bleeding in the premenopausal period (principal)
CPT/HCPCS: 36415; 85025

== ENCOUNTER → 2022-09-10 10:04 | Outpatient (CLI) | payer OTHER, SELFPAY ==
[2022-09-12 13:32] LABS: Fecal Immunochemical Test Negative (Negative)
== END ==
PROVIDERS: PCP Physician Assistant; Visit Provider Physician Assistant
DX: D64.9 Anemia, unspecified (principal)
CPT/HCPCS: 82274

== ENCOUNTER 2022-10-11 14:00 | Emergency (ER) | payer OTHER, SELFPAY ==
[2022-10-11] VITALS (13 sets, daily range): BP systolic 109–150; BP diastolic 55–92; PULSE 72–117; RESP 18; TEMP 37.1; O2SAT 97–100; BMI 36.6
[2022-10-11 14:45] LABS: Add Manual Diff / Slide Review NO; Basophils Absolute Auto 100 /uL (0-100); Basophils Percent Auto 0.9 % (0-2); Eosinophils Absolute Auto 0 /uL (0-450); Eosinophils Percent Auto 0.5 % (2-4); Hematocrit 30.4 % (36-46); Hemoglobin 10.3 g/dL (12.0-16.0); Lymphocytes Absolute Auto 2000 /uL (1100-4500); Lymphocytes Percent Auto 21.3 % (25-40); Mean Corpuscular HGB Conc 33.9 % (30-36); Mean Corpuscular Hemoglobin 30.3 PG (26-34); Mean Corpuscular Volume 89.3 fL (80-100); Monocytes Absolute Auto 600 /uL (0-900); Monocytes Percent Auto 6.5 % (3-14); Neutrophils Absolute Auto 6500 /uL (1500-7000); Neutrophils Percent Auto 70.8 % (50-75); Platelet Count 237 X10^3/uL (150-400); Red Cell Distribution Width 14.7 % (11.6-14.8); White Blood Cell Count 9.2 X10^3/uL (4.5-11.0)
--- NOTE | 2022-10-11 14:56 | DI.US.S_ITS ---
PROCEDURE: US PELVIC COMPLETE INDICATIONS: HEAVY BLEEDING. LAST MENSES 01/02. HISTORY OF BREAST CANCER. TECHNIQUE: Real-time scanning was performed of the pelvic organs, with image documentation. Additional endovaginal scanning was necessary due to incomplete visualization of the adnexal and endometrial structures by transabdominal scanning. COMPARISON: None. FINDINGS: The uterine body measures 6.0 x 6.8 x 9.4 cm. Mixed echogenicity but overall hyperechoic fluid in the uterine cavity likely representing mixture of blood products in the uterine cavity with thickened endometrium. The endometrial stripe complex measures 2.3 cm in maximum trilaminar thickness. Probable hemorrhagic cyst in the right ovary measuring 4.1 x 4.6 x 5.3 cm with a few lacy traversing septations but an overall anechoic appearance with no suspicious mural nodularity or solid component identified. Right ovary normal in appearance otherwise with normal arterial and venous Doppler flow. Left ovary not identified. IMPRESSION: Left ovary not identified. Thickened endometrium with blood products in the uterine cavity. This finding is of unknown clinical significance but is cystically most likely related to disordered uterine bleeding in a perimenopausal patient. Large hemorrhagic cyst in the right ovary. We strive to produce accurate, complete, and clear reports of imaging services. To assist us in improving patient care, this report was composed using standard report templates and voice recognition software. Therefore, it may contain abnormal punctuation, insertions and/or omissions. Occasional wrong-word or sound-alike substitutions may occur. Though we review the report and make efforts to correct it, we do recommend that the report be read carefully in proper context to recognize any text inaccuracies. Dictated by: Salvatore White M.D. on 10/11/2022 at 17:09 Approved by: Salvatore White M.D. on 10/11/2022 at 17:12
[2022-10-11 14:59] LABS: Blood Urea Nitrogen 7 mg/dL (7-17); Calcium 8.9 mg/dL (8.4-10.2); Carbon Dioxide 28 mmol/L (22-32); Chloride 102 mmol/L (98-107); Estimated Glomerular Filt Rate > 60 mL/min (>60); Glucose 114 mg/dL (70-100); HEMOLYSIS < 15 (0-50); Potassium 3.6 mmol/L (3.4-5.1); Sodium 138 mmol/L (137-145)
--- NOTE | 2022-10-11 15:07 | ED_ITS ---
HPI - <MAMIE Gore - Last Filed: 10/11/22 18:18> General Chief complaint: Urogenital-Female Stated complaint: Heavy period, Large clots Time Seen by Provider: 10/11/22 14:55 Source: patient Mode of arrival: Ambulatory Limitations: no limitations History of Present Illness HPI Narrative: This is a 52-year-old female presents emergency department with onset vaginal bleeding and cramping yesterday without menstrual cycles since December 2021. Patient denies any breakthrough bleeding and states that she has had heavier than usual bleeding with changing pads and tampons every hour since 10/10/2022 at 06:00. She states that they are large dark clots with raphael red blood. She states her last cycle in December of 2021 lasted several weeks. Patient is 4 years status post right mastectomy and takes tamoxifen daily and she is concerned about uterine cancer. She has a history of uterine polyp removal [place] [address] Levi and a tubal ligation in 2009. She states that she takes 81 mg of aspirin daily and over the last 2 days has split that dose in half. She anders es history of blood clots, denies any lower extremity swelling, denies recent illness, fever, chills, vomiting or nausea. She is not had any medication today. She has not had any food or water today, came over from [facility] for evaluation. She endorses having hot flashes occasionally still, and last week she states that she felt maybe cold hot flashes. Related Data Home Medications Medication Instructions Recorded Confirmed [id number] 1 tab PO DAILY 08/15/18 08/07/21 aspirin 81 mg tablet,delayed 81 mg PO DAILY 10/24/18 08/07/21 release tamoxifen 10/24/18 08/07/21 cholecalciferol (vitamin D3) 50 50 mcg PO DAILY 08/06/21 08/07/21 mcg (2,000 unit) capsule Previous Rx's Medication Instructions Recorded naproxen 250 mg tablet 250 mg PO BID PRN pain #30 tabs 10/11/22 tranexamic acid 650 mg tablet 1,300 mg PO TID 5 days #30 tabs 10/11/22 Allergies Allergy/AdvReac Type Severity Reaction Status Date / Time No Known Drug Allergies Allergy Verified 08/07/21 14:54 Review of Systems <MAMIE Gore - Last Filed: 10/11/22 18:18> Review of Systems Narrative: Review of systems is negative for acute abnormalities unless otherwise noted in HPI Exam <MAMIE Gore - Last Filed: 10/11/22 18:18> Narrative Exam Narrative: Reviewed vitals signs and nursing notes. General: cooperative, comfortable, in no acute distress, well groomed HEENT: symmetrical facial expressions, moist mucous membranes Cardiovascular: regular rate and rhythm, no peripheral edema, warm extremities Respiratory: normal effort, able to speak in complete sentences, without wheezing, stridor, or abnormal breath sounds. No retractions or tachypnea. GI: abdomen soft, nontender to palpation, no tenderness to suprapubic region, patient does complain menstrual cramps, nondistended, without masses, rebound tenderness or exquisite tenderness with exam. MSK: moves all extremities, neurovascularly intact, no weakness, normal tone Skin: brisk capillary refill, without pallor or erythema Neuro: normal speech and cognition, A&O x3, ambulatory, clear speech Psych: mental status is grossly normal, congruent mood, normal affect, pleasant and cooperative Initial Vital Signs Initial Vital Signs: Vital Signs Temperature 98.8 F 10/11/22 14:15 Pulse Rate 89 10/11/22 14:15 Respiratory Rate 18 10/11/22 14:15 Blood Pressure 150/69 H 10/11/22 14:15 Pulse Oximetry 99 10/11/22 14:15 Oxygen Delivery Method 10/11/22 14:15 <Stacey Castro DO - Last Filed: 10/12/22 11:57> Initial Vital Signs Initial Vital Signs: Vital Signs Temperature 98.8 F 10/11/22 14:15 Pulse Rate 89 10/11/22 14:15 Respiratory Rate 18 10/11/22 14:15 Blood Pressure 150/69 H 10/11/22 14:15 Pulse Oximetry 99 10/11/22 14:15 Oxygen Delivery Method 10/11/22 14:15 Course <MAMIE Gore - Last Filed: 10/11/22 18:18> Orders Ordered: Discontinued Medications Sodium Chloride (Normal Saline 0.9%) 1,000 mls @ 1,000 mls/hr IV BOLUS ONE Stop: 10/11/22 16:05 Last Infusion: 10/11/22 17:38 Dose: 0 mls/hr Documented By: Admin: 10/11/22 15:28 Dose: 1,000 mls/hr Documented By: RB Tranexamic Acid 1,000 mg/ (Sodium Chloride) 100 mls @ 200 mls/hr IV NOW ONE Stop: 10/11/22 18:25 Last Infusion: 10/11/22 18:45 Dose: 0 mls/hr Documented By: Admin: 10/11/22 18:09 Dose: 200 mls/hr Documented By: RB Ketorolac Tromethamine (Ketorolac 30 Mg/Ml Vial) 15 mg IV NOW ONE Stop: 10/11/22 15:07 Last Admin: 10/11/22 15:28 Dose: 15 mg Documented By: RB Consultations Consultation #1: Consultation with Dr. Hargrove who is on-call for OBGYN, we reviewed her ultrasound and she recommends calling Dr. Mckinley who is back up call for OBGYN to discuss follow-up and endometrial biopsy Consultation #2: Consultation with Dr. Luc Mckinley with OBGYN regarding patient's ultrasound with abnormal uterine bleeding. He recommends TXA 1 g IV x1 with 1300 mg TID x5 days for dysfunctional bleeding. States that this is safe to take with NSAIDs like naproxen or Toradol. Recommends that she follow-up with him or with Dr. Levi in the clinic for endometrial biopsy. He would be happy to see the patient. Vital Signs Vital signs: Vital Signs - 8 hr 10/11/22 14:15 10/11/22 15:17 10/11/22 15:32 Temperature 98.8 F Pulse Rate 89 89 82 Respiratory Rate 18 Blood Pressure 150/69 H Pulse Oximetry 99 99 97 Oxygen Delivery Method Room Air 10/11/22 15:33 10/11/22 15:33 10/11/22 16:00 Temperature Pulse Rate 88 80 Respiratory Rate Blood Pressure 145/92 H Pulse Oximetry 98 98 Oxygen Delivery Method 10/11/22 16:01 10/11/22 16:01 10/11/22 16:30 Temperature Pulse Rate 83 Respiratory Rate Blood Pressure 114/55 L 116/60 Pulse Oximetry 98 Oxygen Delivery Method 10/11/22 16:30 10/11/22 17:02 10/11/22 17:03 Temperature Pulse Rate 75 117 H Respiratory Rate Blood Pressure 137/65 Pulse Oximetry 100 97 Oxygen Delivery Method 10/11/22 17:03 10/11/22 17:30 10/11/22 17:31 Temperature Pulse Rate 99 H 92 H Respiratory Rate Blood Pressure 109/64 Pulse Oximetry 98 98 Oxygen Delivery Method 10/11/22 17:31 10/11/22 18:00 10/11/22 18:00 Temperature Pulse Rate 90 86 Respiratory Rate Blood Pressure 115/62 Pulse Oximetry 98 98 Oxygen Delivery Method <Stacey Castro DO - Last Filed: 10/12/22 11:57> Orders Ordered: Discontinued Medications Sodium Chloride (Normal Saline 0.9%) 1,000 mls @ 1,000 mls/hr IV BOLUS ONE Stop: 10/11/22 16:05 Last Infusion: 10/11/22 17:38 Dose: 0 mls/hr Documented By: Admin: 10/11/22 15:28 Dose: 1,000 mls/hr Documented By: YUE Tranexamic Acid 1,000 mg/ (Sodium Chloride) 100 mls @ 200 mls/hr IV NOW ONE Stop: 10/11/22 18:25 Last Infusion: 10/11/22 18:45 Dose: 0 mls/hr Documented By: Admin: 10/11/22 18:09 Dose: 200 mls/hr Documented By: YUE Ketorolac Tromethamine (Ketorolac 30 Mg/Ml Vial) 15 mg IV NOW ONE Stop: 10/11/22 15:07 Last Admin: 10/11/22 15:28 Dose: 15 mg Documented By: YUE Vital Signs Vital signs: Vital Signs - 8 hr 10/11/22 14:15 10/11/22 15:17 10/11/22 15:32 Temperature 98.8 F Pulse Rate 89 89 82 Respiratory Rate 18 Blood Pressure 150/69 H Pulse Oximetry 99 99 97 Oxygen Delivery Method Room Air 10/11/22 15:33 10/11/22 15:33 10/11/22 16:00 Temperature Pulse Rate 88 80 Respiratory Rate Blood Pressure 145/92 H Pulse Oximetry 98 98 Oxygen Delivery Method 10/11/22 16:01 10/11/22 16:01 10/11/22 16:30 Temperature Pulse Rate 83 Respiratory Rate Blood Pressure 114/55 L 116/60 Pulse Oximetry 98 Oxygen Delivery Method 10/11/22 16:30 10/11/22 17:02 10/11/22 17:03 Temperature Pulse Rate 75 117 H Respiratory Rate Blood Pressure 137/65 Pulse Oximetry 100 97 Oxygen Delivery Method 10/11/22 17:03 10/11/22 17:30 10/11/22 17:31 Temperature Pulse Rate 99 H 92 H Respiratory Rate Blood Pressure 109/64 Pulse Oximetry 98 98 Oxygen Delivery Method 10/11/22 17:31 10/11/22 18:00 10/11/22 18:00 Temperature Pulse Rate 90 86 Respiratory Rate Blood Pressure 115/62 Pulse Oximetry 98 98 Oxygen Delivery Method MDM - OB/Uterine Contractions <Luz Sequeira, VP [employer]OP[employer] - Last Filed: 10/11/22 18:18> Lab Data Result diagrams: 10/11/22 14:25 10/11/22 14:25 Labs: Lab Results 10/11/22 10/11/22 10/11/22 Range/Units 14:25 14:25 14:25 WBC 9.2 (4.5-11.0) X10^3/uL RBC 3.40 L (4.0-5.2) X10^6/uL Hgb 10.3 L (12.0-16.0) g/dL Hct 30.4 L (36-46) % MCV 89.3 (80-100) fL MCH 30.3 (26-34) PG MCHC 33.9 (30-36) % RDW 14.7 (11.6-14.8) % Plt Count 237 (150-400) X10^3/uL Neut % (Auto) 70.8 (50-75) % Lymph % (Auto) 21.3 L (25-40) % [place] % (Auto) 6.5 (3-14) % Eos % (Auto) 0.5 L (2-4) % Baso % (Auto) 0.9 (0-2) % Neut # (Auto) 6500 (3321-8374) /uL Lymph # (Auto) 2000 (7054-6668) /uL [place] # (Auto) 600 (0-900) /uL Eos # (Auto) 0 (0-450) /uL Baso # (Auto) 100 (0-100) /uL PT (10.1-12.7) SECONDS INR (0.9-1.3) Sodium 138 (137-145) mmol/L Potassium 3.6 (3.4-5.1) mmol/L Chloride 102 (98-107) mmol/L Carbon Dioxide 28 (22-32) mmol/L BUN 7 (7-17) mg/dL Creatinine 0.54 (0.52-1.04) mg/dL Estimated GFR > 60 (>60) mL/min BUN/Creatinine Ratio 13.0 (6-22) Glucose 114 H (70-100) mg/dL Calcium 8.9 (8.4-10.2) mg/dL Urine Color Urine Appearance Urine pH (4.5-8.0) Ur Specific [place] (1.000-1.035) Urine Protein (Negative) Urine Glucose (UA) (Negative) g/dL Urine Ketones (NEGATIVE) Urine Occult Blood (Negative) Urine Nitrate (Negative) Urine Bilirubin (NEGATIVE) Urine Urobilinogen (0.2) E.U./dL Ur Leukocyte Esterase (NEGATIVE) Urine RBC (0-5/HPF) Urine WBC (0-5/HPF) Ur Squamous Epith Cells (0-5/HPF) Urine Bacteria (None) Ur Culture Indicated? Urine Test (Negative) Blood Type O Positive Antibody Screen Negative 10/11/22 10/11/22 10/11/22 Range/Units 14:25 15:30 15:30 WBC (4.5-11.0) X10^3/uL RBC (4.0-5.2) X10^6/uL Hgb (12.0-16.0) g/dL Hct (36-46) % MCV (80-100) fL MCH (26-34) PG MCHC (30-36) % RDW (11.6-14.8) % Plt Count (150-400) X10^3/uL Neut % (Auto) (50-75) % Lymph % (Auto) (25-40) % [place] % (Auto) (3-14) % Eos % (Auto) (2-4) % Baso % (Auto) (0-2) % Neut # (Auto) (2157-1008) /uL Lymph # (Auto) (1618-7140) /uL [place] # (Auto) (0-900) /uL Eos # (Auto) (0-450) /uL Baso # (Auto) (0-100) /uL PT 11.5 (10.1-12.7) SECONDS INR 1.0 (0.9-1.3) Sodium (137-145) mmol/L Potassium (3.4-5.1) mmol/L Chloride (98-107) mmol/L Carbon Dioxide (22-32) mmol/L BUN (7-17) mg/dL Creatinine (0.52-1.04) mg/dL Estimated GFR (>60) mL/min BUN/Creatinine Ratio (6-22) Glucose (70-100) mg/dL Calcium (8.4-10.2) mg/dL Urine Color Yellow Urine Appearance Cloudy Urine pH 6.0 (4.5-8.0) Ur Specific [place] 1.020 (1.000-1.035) Urine Protein Trace H (Negative) Urine Glucose (UA) Negative (Negative) g/dL Urine Ketones 1+ H (NEGATIVE) Urine Occult Blood 3+ H (Negative) Urine Nitrate Negative (Negative) Urine Bilirubin Negative (NEGATIVE) Urine Urobilinogen 0.2 (0.2) E.U./dL Ur Leukocyte Esterase Negative (NEGATIVE) Urine RBC 10-30/hpf H (0-5/HPF) Urine WBC 0-1/hpf (0-5/HPF) Ur Squamous Epith Cells None seen (0-5/HPF) Urine Bacteria Occasional (0-1) (None) Ur Culture Indicated? Cult not indicated Urine Test Negative (Negative) Blood Type Antibody Screen Imaging Data US - [employer]: Radiologist's Impression: PROCEDURE:? US PELVIC COMPLETE ? INDICATIONS:? HEAVY BLEEDING. LAST MENSES 01/02. HISTORY OF BREAST CANCER. ? TECHNIQUE:? Real-time scanning was performed of the pelvic organs, with image documentation.? Additional endovaginal scanning was necessary due to incomplete visualization of the adnexal and endometrial structures by transabdominal scanning.? ? COMPARISON:? None. ? FINDINGS:? The uterine body measures 6.0 x 6.8 x 9.4 cm.? Mixed echogenicity but overall hyperechoic fluid in the uterine cavity likely representing mixture of blood products in the uterine cavity with thickened endometrium.? The endometrial stripe complex measures 2.3 cm in maximum trilaminar thickness. ? Probable hemorrhagic cyst in the right ovary measuring 4.1 x 4.6 x 5.3 cm with a few lacy traversing septations but an overall anechoic appearance with no suspicious mural nodularity or solid component identified.? Right ovary normal in appearance otherwise with normal arterial and venous Doppler flow.? Left ovary not identified. ? IMPRESSION:? ? Left ovary not identified. ? Thickened endometrium with blood products in the uterine cavity.? This finding is of unknown clinical significance but is cystically most likely related to disordered uterine bleeding in a perimenopausal patient. ? Large hemorrhagic cyst in the right ovary. ? We strive to produce accurate, complete, and clear reports of imaging services. To assist us in improving patient care, this report was composed using standard report templates and voice recognition software. Therefore, it may contain abnormal punctuation, insertions and/or omissions. Occasional wrong-word or sound-alike substitutions may occur. Though we review the report and make efforts to correct it, we do recommend that the report be read carefully in proper context to recognize any text inaccuracies. ? Dictated by: Salvatore White M.D. on 10/11/2022 at 17:09 ? ? Approved by: Salvatore White M.D. on 10/11/2022 at 17:12 ? MDM Narrative Medical decision making narrative: This is a 52-year-old female who presents to the emergency department with heavy vaginal bleeding since yesterday without menstrual bleeding since December 2021. Patient is hemodynamically stable, mildly anemic with a hemoglobin is 10.3 and hematocrit is 30.4, no leukocytosis or left shift, a without electrolyte abnormalities on her lab work today, UA does not show infection, negative and patient is status post tubal ligation years ago, has a history of uterine polyp removal in [address] Levi. She is perimenopausal but was concerned since she has history of uterine polyp removal and history of breast cancer and takes tamoxifen daily and has for the last 4 years.. Pelvic ultrasound was completed and shows uterine body measuring 6 x 6.8 x 9.4 cm with mixed echogenicity, hyperechoic fluid in the uterine cavity with a thickened endometrium. The endometrial stripe complex measures 2.3 cm in maximum trilaminar thickness. With a probable hemorrhagic cyst in the right ovary measuring 4.1 x 4.6 x 5.3 cm with a few lacy transverse and septations. Patient has not had sexual intercourse for approximately 5 years, right ovary is normal in appearance in otherwise with normal arterial and venous Doppler flow left ovary is not identified. Patient has history of procedures with Dr. Levi, consultation was made with Dr. Hargrove who is on-call since patient lives on [facility] with plan for follow- up. She was given Toradol in the emergency department 1 L of IV fluids. Her pain down to a 1/10 on reexamination. \consultation with Dr. Mckinley who recommends TXA, this was given in the emergency department 1 g IV x1. She will take TXA PO 1300 mg t.i.d. for the next 7 days with NSAIDs as needed for pain and bleeding. She will schedule an appointment for follow-up with Dr. Mckinley or Dr. Levi and understands that she will need an endometrial biopsy. She was given strict return precautions, she has mild anemia today with a hemoglobin is 10.3, hematocrit of 30.4, and an RBC of 3.4, INR is 1.0, no electrolyte abnormalities on her lab work, urine is ne gative for infection. She understands to hydrated, eat a diet with a wide variety of foods, can start taking iron supplements with stool softeners if she can tolerate them well. <Stacey Castro, DO - Last Filed: 10/12/22 11:57> Lab Data Labs: Lab Results 10/11/22 10/11/22 10/11/22 Range/Units 14:25 14:25 14:25 WBC 9.2 (4.5-11.0) X10^3/uL RBC 3.40 L (4.0-5.2) X10^6/uL Hgb 10.3 L (12.0-16.0) g/dL Hct 30.4 L (36-46) % MCV 89.3 (80-100) fL MCH 30.3 (26-34) PG MCHC 33.9 (30-36) % RDW 14.7 (11.6-14.8) % Plt Count 237 (150-400) X10^3/uL Neut % (Auto) 70.8 (50-75) % Lymph % (Auto) 21.3 L (25-40) % [place] % (Auto) 6.5 (3-14) % Eos % (Auto) 0.5 L (2-4) % Baso % (Auto) 0.9 (0-2) % Neut # (Auto) 6500 (5382-9872) /uL Lymph # (Auto) 2000 (0253-2964) /uL [place] # (Auto) 600 (0-900) /uL Eos # (Auto) 0 (0-450) /uL Baso # (Auto) 100 (0-100) /uL PT (10.1-12.7) SECONDS INR (0.9-1.3) Sodium 138 (137-145) mmol/L Potassium 3.6 (3.4-5.1) mmol/L Chloride 102 (98-107) mmol/L Carbon Dioxide 28 (22-32) mmol/L BUN 7 (7-17) mg/dL Creatinine 0.54 (0.52-1.04) mg/dL Estimated GFR > 60 (>60) mL/min BUN/Creatinine Ratio 13.0 (6-22) Glucose 114 H (70-100) mg/dL Calcium 8.9 (8.4-10.2) mg/dL Urine Color Urine Appearance Urine pH (4.5-8.0) Ur Specific [place] (1.000-1.035) Urine Protein (Negative) Urine Glucose (UA) (Negative) g/dL Urine Ketones (NEGATIVE) Urine Occult Blood (Negative) Urine Nitrate (Negative) Urine Bilirubin (NEGATIVE) Urine Urobilinogen (0.2) E.U./dL Ur Leukocyte Esterase (NEGATIVE) Urine RBC (0-5/HPF) Urine WBC (0-5/HPF) Ur Squamous Epith Cells (0-5/HPF) Urine Bacteria (None) Ur Culture Indicated? Urine Test (Negative) Blood Type O Positive Antibody Screen Negative 10/11/22 10/11/22 10/11/22 Range/Units 14:25 15:30 15:30 WBC (4.5-11.0) X10^3/uL RBC (4.0-5.2) X10^6/uL Hgb (12.0-16.0) g/dL Hct (36-46) % MCV (80-100) fL MCH (26-34) PG MCHC (30-36) % RDW (11.6-14.8) % Plt Count (150-400) X10^3/uL Neut % (Auto) (50-75) % Lymph % (Auto) (25-40) % [place] % (Auto) (3-14) % Eos % (Auto) (2-4) % Baso % (Auto) (0-2) % Neut # (Auto) (1316-8273) /uL Lymph # (Auto) (4359-1646) /uL [place] # (Auto) (0-900) /uL Eos # (Auto) (0-450) /uL Baso # (Auto) (0-100) /uL PT 11.5 (10.1-12.7) SECONDS INR 1.0 (0.9-1.3) Sodium (137-145) mmol/L Potassium (3.4-5.1) mmol/L Chloride (98-107) mmol/L Carbon Dioxide (22-32) mmol/L BUN (7-17) mg/dL Creatinine (0.52-1.04) mg/dL Estimated GFR (>60) mL/min BUN/Creatinine Ratio (6-22) Glucose (70-100) mg/dL Calcium (8.4-10.2) mg/dL Urine Color Yellow Urine Appearance Cloudy Urine pH 6.0 (4.5-8.0) Ur Specific [place] 1.020 (1.000-1.035) Urine Protein Trace H (Negative) Urine Glucose (UA) Negative (Negative) g/dL Urine Ketones 1+ H (NEGATIVE) Urine Occult Blood 3+ H (Negative) Urine Nitrate Negative (Negative) Urine Bilirubin Negative (NEGATIVE) Urine Urobilinogen 0.2 (0.2) E.U./dL Ur Leukocyte Esterase Negative (NEGATIVE) Urine RBC 10-30/hpf H (0-5/HPF) Urine WBC 0-1/hpf (0-5/HPF) Ur Squamous Epith Cells None seen (0-5/HPF) Urine Bacteria Occasional (0-1) (None) Ur Culture Indicated? Cult not indicated Urine Test Negative (Negative) Blood Type Antibody Screen Discharge Plan Departure Patient Disposition: Home Clinical Impression: Abnormal perimenopausal bleeding, Hemorrhagic cyst of right ovary, Endometrial thickening on ultrasound, Anemia Instructions: DI for Endometrial Biopsy, DI for Ovarian Cyst, DI for Abnormal Uterine Bleeding, Endometrial Hyperplasia Activity Restrictions/Additional Instructions: *You have been diagnosed with abnormal uterine bleeding, there is also hemorrhagic right ovarian cyst. Your blood counts are stable today however you may need a biopsy in the future which is what took a long time to consult with OBGYN about. Please call and schedule an appointment with Dr. Levi or Dr. Mckinley for follow- up tomorrow. This appointment can be anytime in the next 1-2 weeks. Please stay hydrated, okay to take a leave morning and night or ibuprofen as needed for your bleeding and cramping. Tylenol in addition to that can be helpful for pain . *What to do: *Please continue to take your regular medications as directed. [x ] New medication prescriptions sent to your pharmacy: [ [facility] [ ] New medication written as a paper prescription [ ] No new medications given *Please follow up with your primary care provider in 2-3 days, call for an appointment. Let them know you were seen in the Emergency Department and that we asked that you be seen for follow-up. We will electronically transmit a record of today's note if your PCP is in our system *If you do not have a primary care provider please contact [phone] to establish care with one of the [facility] primary care providers. *Return to Emergency Department if you should have any new, worsening, or concerning symptoms, such as [fever greater than 101F, chills, worsening pain, persistent vomiting or other bothersome symptoms]. Prescriptions: New tranexamic acid 650 mg tablet 1,300 mg PO TID 5 Days Qty: 30 0RF naproxen 250 mg tablet 250 mg PO BID PRN (Reason: pain) Qty: 30 0RF No Action [id number] 1 tab PO DAILY aspirin 81 mg Tablet,Delayed Release (Dr/Ec) 81 mg PO DAILY tamoxifen cholecalciferol (vitamin D3) 50 mcg (2,000 unit) capsule 50 mcg PO DAILY Referrals: Chantale Levi MD [Physician] - Judith Leblanc PA-C [Primary Care Provider] - Luc Mckinley MD [Physician] - Visit Report Forms: Patient Portal/API <Stacey Castro DO - Last Filed: 10/12/22 11:57> Cosign ED Attending Cosignature Attestation: I was immediately available in the department for consultation. Documentation has been reviewed. Case was discussed, based on patient's age and that her last menstrual period was in December of 2021 patient does need follow-up with OBGYN for possible biopsy and workup which was arranged. OB recommendations are appreciated.
[2022-10-11 15:22] LABS: Prothrombin Time 11.5 SECONDS (10.1-12.7)
[2022-10-11] MEDS: KETOROLAC 30 MG/ML VIAL 15 MG IV (15:28)
[2022-10-11] MEDS: SODIUM CHLORIDE 0.9% 1,000 ML 1000 ML IV (15:28)
[2022-10-11 15:38] LABS: Pregnancy Test Urine Negative (Negative)
[2022-10-11 16:15] LABS: Appearance Urine UA CLOUDY; Bilirubin Urine UA NEGATIVE (NEGATIVE); Color Urine UA YELLOW; Glucose Urine UA NEGATIVE (Negative); Ketones Urine UA 1+ (NEGATIVE); Leukocyte Esterase Urine UA NEGATIVE (NEGATIVE); Nitrite Urine UA NEGATIVE (Negative); Occult Blood Urine UA 3+ (Negative); Protein Urine UA TRACE (Negative); Urobilinogen Urine UA 0.2 E.U./dL (0.2)
[2022-10-11 16:33] LABS: Bacteria Urine Occasional (0-1); Culture Indicated Urine Cult Not Indicated; RBC Urine 10-30/HPF (0-5/HPF); Squamous Epithelial Cell Urine None Seen (0-5/HPF); WBC Urine 0-1/HPF (0-5/HPF)
[2022-10-11] MEDS: TRANEXAMIC ACID 1,000 MG in SODIUM CHLORIDE 0.9% 100 ML 200 MG IV (18:09)
== END 2022-10-11 18:53 | disposition home or self-care (01) ==
PROVIDERS: Emergency Medicine; Emergency Provider Nurse Practitioner Critical Care Medicine; PCP Physician Assistant
DX: N92.4 Excessive bleeding in the premenopausal period (principal); N83.201 Unspecified ovarian cyst, right side; R93.89 Abnormal findings on diagnostic imaging of other specified body structures; D64.9 Anemia, unspecified
CPT/HCPCS: 36415; 76830; 76856; 80048; 81001; 81025; 85025; 85610; 86850; 86900; 86901; 93976; 96361; 96365; 96375; 99284; J1885

== ENCOUNTER 2023-07-18 09:12 | Day surgery (SDC) | payer OTHER, SELFPAY ==
[2023-07-12 14:23] VITALS: BMI 36.6
--- NOTE | 2023-07-18 | PATH_ITS ---
[facility] Accession Number: [id number] No. of containers..01 Tissue . 01 Material submitted: . endometrium - ENDOMETRIAL CURETTINGS . 01 Diagnosis: Endometrium, Curettings: Fragments of proliferative endometrium with focal features consistent with endometrial polyp. Reactive and metaplastic changes also present. Negative for hyperplasia, atypia, and malignancy. V 07/25/2023 1536 Local . 01 Electronically signed: . Saniya Flynn MD, Pathologist NPI- [id number] . 01 Gross description: . Received in formalin, labeled with the patient's name and endometrial curettings, is a 3.8 x 2.5 x 0.4 cm aggregate of pink-parikh soft tissue admixed with clotted blood. The specimen is submitted entirely in cassettes A1-A3. ([id number]) /[facility] 07/20/2023 1550 Local . 01 Pathologist provided ICD-10: N84.0 . 01 CPT . 128016 Specimen Comment: A courtesy copy of this report has been sent to [phone] Performed at: 01 [facility] [address] [place] [address] [id number] MD Richie Palacios MD Phone: [phone]
[2023-07-18 09:51] VITALS: BP 131/83; PULSE 75; RESP 14; TEMP 36.4; O2SAT 100; BMI 35.7
[2023-07-18] MEDS: LACTATED RINGERS 1,000 ML 125 ML IV (10:22)
--- NOTE | 2023-07-18 11:49 | PM.GYNHP.1 ---
History of Present Illness History of Present Illness Reason for admission: vaginal bleeding (Postmenopausal on tamoxifen) Narrative: Carole Leggett is a 53 year old female 3 para 3 with postmenopausal bleeding, thickened endometrial lining, on tamoxifen therapy. She is here for a D&C hysteroscopy and polypectomy. [facility] Medical History (Updated 05/15/23 @ 15:40 by Judith Leblanc PA-C) Abnormal Pap smear of cervix (~2017) Anxiety and depression Chicken pox (~1982) Closed fracture of upper end of tibia Eczema Fracture, tibial plateau, open Hearing loss Hemorrhoid Shingles (~2007) Surgical History (Updated 08/06/21 @ 19:55 by Ilene Chong) Anesthesia Fracture of left tibial plateau (~04/23/14) History of mastectomy (~09/09/18) History of third molar tooth extraction Status post surgery (08/05/15) Status post tubal ligation (~11/2009) Family History (Updated 08/06/21 @ 20:08 by Ilene Chong) Grandmother Colon cancer Cervical cancer Grandfather Esophageal cancer Diabetes mellitus Father Hypertension Mother Hyperlipidemia Hypertension Grandfather Hypertension Stroke Grandmother Congestive heart failure History of heart disease Hypertension Hyperlipidemia Stroke Social History household members: none Smoking Status: Never smoker alcohol intake: current Meds Home Medications and Allergies Home Medications Medication Instructions Recorded Confirmed Type aspirin 81 mg tablet,delayed 81 mg PO DAILY 10/24/18 07/12/23 History release cholecalciferol (vitamin D3) 50 50 mcg PO DAILY 08/06/21 07/12/23 History mcg (2,000 unit) capsule tamoxifen 20 mg tablet 20 mg PO 05/15/23 07/12/23 History ibuprofen 600 mg 07/18/23 History Allergies Allergy/AdvReac Type Severity Reaction Status Date / Time No Known Drug Allergies Allergy Verified 07/12/23 11:01 Exam Vital Signs (past 8 hours): - 07/18/23 09:51 Temperature 97.5 F L Pulse Rate 75 Respiratory Rate 14 Blood Pressure 131/83 Pulse Oximetry 100 Oxygen Delivery Method Room Air Oxygen Delivery Method Room Air Narrative Exam Narrative: HEENT: No thyromegaly, no anterior cervical or supraclavicular lymphadenopathy. Lungs:Clear to auscultation bilaterally, no wheezes. Cardiovascular: Regular rate and rhythm, no murmurs, rubs, or gallops. Abdomen: No scars. No hepatosplenomegaly. No masses palpable. External genitalia: Normal Vagina: Normal Cervix: Normal Bimanual exam: 8 Week size anteverted uterus. Mobile. Extremities: No edema Assessment & Plan Assessment & Plan narrative: Assessment: 53-year-old 3 para 3 with postmenopausal bleeding, endometrial hyperplasia, on tamoxifen therapy Suspect endometrial polyp Plan: D&C hysteroscopy with polypectomy The risks, benefits, and alternatives to the procedure were explained to the patient. The risks including bleeding, infection, uterine perforation. She understands these risks and agrees to proceed. A full par Q was held and consent form was signed. Time Spent With Patient Time with patient: less than 30 minutes
--- NOTE | 2023-07-18 11:52 | PM.PREOP ---
Pre-operative Note COVID-19 Criteria for continued procedure: Non-surgical alternatives not available or appropriate per current SOC Interval Note History & Physical reviewed/Exam performed by Physician: Yes Changes to H&P: No H&P completed within 30 days and has changed as indicated here:: 07/18/23
--- NOTE | 2023-07-18 12:19 | SUR.OPER ---
Lithotomy on padded OR bed, head on pillow, arms secured on padded arm boards at <90 degrees abduction. Legs secured in padded yellow fins stirrups.
[2023-07-18 12:27] VITALS: BP 115/65; PULSE 91; RESP 12; TEMP 36.3; O2SAT 99
[2023-07-18 12:32] VITALS: BP 114/70; PULSE 74; RESP 10; O2SAT 100
--- NOTE | 2023-07-18 12:35 | PM.GYNOP.1 ---
Operative Date/Time/Diagnoses Date of procedure: 07/18/23 Time of procedure: 12:35 Pre-op diagnosis: Postmenopausal bleeding Endometrial hyperplasia on ultrasound Tamoxifen therapy Post-op diagnosis: same Procedure & Clinicians Procedure: Procedures Operation Date: 07/18/23 11:45 Actual Procedure Side Surgeon p D&C Hysteroscopy, D&C Not Applicable Chantale Levi MD Indications: Patient is a 53-year-old 3 para 3 with postmenopausal bleeding. She is on tamoxifen therapy for breast cancer. She had endometrial hyperplasia on ultrasound. Surgeon: Chantale Levi Anesthesia Type: General (LMA) Operative Notes Findings: 8 week size anteverted uterus Thickened endometrium throughout Bilateral fallopian tube ostia observed Closure Type: not applicable Specimen(s): endometrial curettings Applied: catheter (In/out) Estimated blood loss (mL): 25 Blood products transfused: none Procedure in detail: After informed consent was obtained, the patient was taken to the operating room where she was placed in the dorsal supine position. After adequate LMA general anesthesia was achieved, she was placed in the dorsal lithotomy position, and prepped and draped in the usual sterile fashion. A time-out was performed. An in and out catheter was performed of 100 cc of clear yellow urine. A bivalve speculum was placed into the vagina and the anterior lip of the cervix was grasped with a single-tooth tenaculum. The cervical os was sequentially dilated until the hysteroscope could pass easily into the endometrial cavity. Initial inspection revealed both fallopian tube ostia. There was no polyp observed. There was thickened endometrium throughout the lining of the uterus. The hysteroscope was removed from the uterus. Sharp curettage was performed yielding a large amount of endometrial curettings. The instruments were removed from the uterus. The single-tooth tenaculum was removed from the anterior lip of the cervix. The bivalve speculum was removed from the vagina. Sponge, lap, and instrument counts were correct x2. The patient tolerated the procedure well, and was taken to PACU in stable condition. Complications: none Post-operative Condition: stable Disposition: PACU Plan for aftercare: Home after recovery
[2023-07-18 12:37] VITALS: BP 113/66; PULSE 74; RESP 10; O2SAT 100
--- NOTE | 2023-07-18 12:37 | SUR.PHASEI ---
Received to PACU after general anesthesia. Airway patent, self maintained. Report from JULIA Gibson and Dr Ireland.
[2023-07-18 12:42] VITALS: BP 120/74; PULSE 68; RESP 12; TEMP 36.5; O2SAT 99
[2023-07-18 12:45] VITALS: BP 125/74; PULSE 67; RESP 12; TEMP 36.5; O2SAT 100
== END 2023-07-18 13:35 | disposition home or self-care (01) ==
PROVIDERS: PCP Physician Assistant; Referring Provider Obstetrics & Gynecology; Visit Provider Obstetrics & Gynecology
PROC: 0UDB8ZZ Extraction of Endometrium, Via Natural or Artificial Opening Endoscopic (ICD-10-PCS; CPT 58558; principal; 2023-07-18 11:45)
DX: N84.0 Polyp of corpus uteri (principal); N95.0 Postmenopausal bleeding; C50.919 Malignant neoplasm of unspecified site of unspecified female breast
CPT/HCPCS: 58558; J1100; J1885; J2405; J2704; J3010

== ENCOUNTER 2023-08-16 08:30 | Day surgery (SDC) | payer OTHER, SELFPAY ==
[2023-08-16 11:48] VITALS: BP 127/82; PULSE 89; RESP 16; TEMP 36.2; O2SAT 100; BMI 35.1
[2023-08-16] MEDS: LACTATED RINGERS 1,000 ML 150 ML IV (11:59)
--- NOTE | 2023-08-16 12:28 | P.HP_ITS ---
History of Present Illness History of Present Illness Date Patient Seen: 08/16/23 Time Patient Seen: 12:28 Chief complaint: Screening Colonoscopy Narrative: this is her first colonoscopy, family history is grandmother of colon cancer at age 67. She is on tamoxifen, s/p mastectomy. She reports hemorrhoids with occasional blood in the stool and she is slightly anemic. [facility] Medical History Fracture, tibial plateau, open Eczema Anxiety and depression Shingles (~2007) Chicken pox (~1982) Hearing loss Abnormal Pap smear of cervix (~2017) Hemorrhoid Closed fracture of upper end of tibia Surgical History Anesthesia History of mastectomy (~09/09/18) Fracture of left tibial plateau (~04/23/14) Status post surgery (08/05/15) History of third molar tooth extraction Status post tubal ligation (~11/2009) Family History Grandmother Colon cancer Cervical cancer Grandfather Esophageal cancer Diabetes mellitus Father Hypertension Mother Hyperlipidemia Hypertension Grandfather Hypertension Stroke Grandmother Congestive heart failure History of heart disease Hypertension Hyperlipidemia Stroke Social History household members: none Smoking Status: Never smoker alcohol intake: current Meds Home Medications and Allergies Home Medications Medication Instructions Recorded Confirmed Type aspirin 81 mg tablet,delayed 81 mg PO DAILY 10/24/18 08/16/23 History release cholecalciferol (vitamin D3) 50 50 mcg PO DAILY 08/06/21 08/16/23 History mcg (2,000 unit) capsule tamoxifen 20 mg tablet 20 mg PO DAILY 05/15/23 08/16/23 History ibuprofen 600 mg PO PRN PRN Pain (Scale 07/18/23 08/16/23 History Score 4-6) Allergies Allergy/AdvReac Type Severity Reaction Status Date / Time No Known Drug Allergies Allergy Verified 08/16/23 11:44 Review of Systems Review of Systems ROS: Yes All systems reviewed with the patient and are negative except as otherwise documented Exam Vital Signs (past 8 hours): - 08/16/23 11:48 Temperature 97.2 F L Pulse Rate 89 Respiratory Rate 16 Blood Pressure 127/82 Pulse Oximetry 100 Oxygen Delivery Method Room Air Oxygen Delivery Method Room Air Const General: cooperative and healthy appearing Nutritional Appearance: overweight HENMT Head: normal to inspection, normocephalic and atraumatic Eyes General: appearance normal, both eyes and all related structures Sclera: sclerae normal Neck Neck: trachea midline Resp Effort & Inspection: normal respiratory effort and able to speak in complete sentences Cardio Rate: regular rate Rhythm: regular rhythm GI Palpation: soft Skin General: turgor normal Neuro General: patient alert, patient awake and patient oriented x3 Speech: speech normal Psych Mental Status: mental status grossly normal Judgment: judgment good Assessment & Plan Assessment & Plan narrative: colon cancer screening with blood in stool and anemia, family history is soft colonoscopy with anesthesia Time Spent With Patient Time with patient: less than 30 minutes
--- NOTE | 2023-08-16 12:56 | PM.OP.COLON ---
Operative Date/Time/Diagnoses Date of procedure: 08/16/23 Time of procedure: 12:56 Pre-op diagnosis: Anemia, blood in stool Post-op diagnosis: same Procedure & Clinicians Study performed: Colonoscopy with anesthesia Same procedure as scheduled: Yes Indications: Colon cancer screening, anemia, blood in stool Surgeon: Ana Cristina Travis Procedure Notes Procedure in detail: Preop diagnosis: Colon cancer screening, anemia, blood in stool Postop diagnosis: Same Operative procedure: Colonoscopy with anesthesia Surgeon: Devorah Travis MD Findings: No significant diverticulosis, no polyps. Grade 2 internal hemorrhoids Procedure: Patient placed in a lateral position. Rectal exam performed showing normal tone no masses. Colonoscope inserted into the rectum and advanced to ileocecal valve with minimal difficulty. Insufflation and extraction of the scope and the above findings. Retroflex was included in the rectum. Impression: No diverticulosis of significance, no polyps. She does have hemorrhoids which explains the blood in stool and possibly anemia. Plan: Repeat colonoscopy in 10 years unless indicated by change in clinical condition Findings: internal hemorrhoids (Grade 2 internal hemorrhoids) Specimen(s): none sent Complications: none Post-procedure Recommendations: Colonoscopy in 10 years Follow up: as needed Disposition: PACU
[2023-08-16 12:58] VITALS: BP 118/77; PULSE 97; RESP 12; TEMP 36.6; O2SAT 97
[2023-08-16 13:03] VITALS: BP 112/72; PULSE 87; RESP 12; O2SAT 100
[2023-08-16 13:08] VITALS: BP 124/87; PULSE 82; RESP 15; O2SAT 98
[2023-08-16 13:12] VITALS: BP 125/79; PULSE 81; RESP 14; TEMP 36.2; O2SAT 98
== END 2023-08-16 13:27 | disposition home or self-care (01) ==
PROVIDERS: Surgery; PCP Physician Assistant; Referring Provider Surgery; Visit Provider Surgery
PROC: 0DJD8ZZ Inspection of Lower Intestinal Tract, Via Natural or Artificial Opening Endoscopic (ICD-10-PCS; CPT 45378; principal; 2023-08-16 12:30)
DX: K92.1 Melena (principal); D64.9 Anemia, unspecified; K64.1 Second degree hemorrhoids
CPT/HCPCS: 45378; J2704

== ENCOUNTER 2023-09-23 07:15 | Day surgery (SDC) | payer OTHER, SELFPAY ==
[2023-09-18 11:50] VITALS: BMI 34.7
[2023-09-23] VITALS (11 sets, daily range): BP systolic 93–128; BP diastolic 42–82; PULSE 64–88; RESP 12–18; TEMP 35.9–36.6; O2SAT 91–99; BMI 34.7
--- NOTE | 2023-09-23 | PATH_ITS ---
[facility] Accession Number: [id number] No. of containers..01 Tissue . 01 Material submitted: . uterus - UTERUS,BILATERAL FALLOPIAN TUBES, AND OVARIES . 01 Diagnosis: Uterus, Bilateral Fallopian Tubes and Ovaries, Laparoscopic Supracervical Hysterectomy and Bilateral Salpingo-oophorectomy (Weight 158 grams): Disordered proliferative endometrium; negative for glandular hyperplasia, cytologic atypia, or malignancy. Myometrium with no significant histomorphologic abnormality. Uterine serosa with no significant histomorphologic abnormality. First described fallopian tube, complete cross sections, with multiple benign paratubal cysts (up to 2 mm in greatest dimension); negative for significant histomorphologic abnormality. First described ovary with benign serous cysts (2-9 mm in greatest dimension) and with patchy stromal thecosis. Second described fallopian tube, complete cross sections, with multiple benign paratubal cysts (up to 21 mm in greatest dimension); negative for significant atypia. Second described ovary with multiple cystic follicles (up to 25 mm in greatest dimension) and patchy regions of stromal thecosis. [facility] 10/04/2023 1306 Local . 01 Electronically signed: . Susan Gr MD, Pathologist NPI- [id number] . 01 Gross description: . The specimen is received in formalin labeled with the patient's name, , and uterus, bilateral fallopian tubes and ovaries, and consists of a fragmented uterus (158 grams, 12.7 x 11.1 x 5.2 cm in aggregate), the first tubo-ovarian unit (the tube measures 3.1 x 0.7 cm and the first ovary weighs 3 grams and measures 3.2 x 1.9 x 1.1 cm), and the second tubo-ovarian unit (the tube measures 3.9 x 0.7 cm and the second oavry weighs 10 grams and measures 4.3 x 2.9 x 1.6 cm), with no cervix identified. . The serosa is parikh and smooth with no evidence of hemorrhage or adhesion identified. The endometrium is parikh an velvety averaging 0.3 cm thick. The myometrium is pink-parikh and trabecular with no lesions identified. . The first tube has violaceous, smooth serosa with multiple small cystic structures measuring up to 0.2 cm in greatest dimension filled with cloudy serous fluid. Sectioning reveals an unremarkable stellate lumen. The associated ovary has a parikh, cerebriform external surface, and sectioning reveals multiple thin, smooth-walled cystic structures ranging from 0.2 to 0.9 cm in greatest dimension filled with parikh serous fluid. The remaining cut surface is physiologic and unremarkable with no lesions identified. . The second tube has parikh, smooth serosa with multiple cystic structures measuring up to 2.1 cm in greatest dimension with thin, smooth fink, and filled with parikh serous fluid. Sectioning reveals an unremarkable stellate lumen. The second ovary has a parikh, cerebriform external surface with a linear defect measuring 2.5 cm in greatest dimension. Sectioning reveals a thin, smooth-walled cystic structure measuring 2.5 cm in greatest dimension with no contents or excrescences identified. The remaining cut surface is physiologic and unremarkable. . Quantitative Analyst sections are submitted as follows: A1: Presumed endometrium. A2: Serosa. A3: First fallopian tube to include one-half of bisected fimbriae and cross-sections. A4: First ovary. A5: Second fallopian tube to include one-half of bisected fimbriae and cross-sections. A6-A7: Second ovary. ([id number]) /JENSEN 09/24/2023 1050 Local . 01 Pathologist provided ICD-10: N95.0, Z79.810 . 01 CPT . 180688 Specimen Comment: A courtesy copy of this report has been sent to [phone] Performed at: 01 [facility] [address] [place] [address], [place], [place] [id number] MD Richie Palacios MD Phone: [phone]
[2023-09-23] MEDS: SCOPOLAMINE 1 PATCH TOP (07:46)
[2023-09-23] MEDS: LACTATED RINGERS 1,000 ML 42 ML IV (07:47)
--- NOTE | 2023-09-23 09:21 | PM.PREOP ---
Pre-operative Note Interval Note History & Physical reviewed/Exam performed by Physician: Yes Changes to H&P: No H&P completed within 30 days and has changed as indicated here:: 09/13/23
[2023-09-23] MEDS: CEFAZOLIN 2 GM/100 ML PREMIX 100 ML IV (09:25)
[2023-09-23] MEDS: ACETAMINOPHEN IV 1,000 MG/100 ML VIAL 400 MG IV (10:00)
--- NOTE | 2023-09-23 10:11 | SUR.OPER ---
Lithotomy on padded OR bed. Point Baker Pad Positioner under torso. Head on pillow, arms padded and tucked at sides. Legs secured in padded yellow fins stirrups.
[2023-09-23] MEDS: BUPIVACAINE 0.5% (PF) 30 ML, EPINEPHrine 0.15 MG INJ (10:27)
--- NOTE | 2023-09-23 11:28 | P.OP_ITS ---
Operative Date/Time/Diagnoses Date of procedure: 09/23/23 Time of procedure: 11:28 Pre-op diagnosis: Postmenopausal bleeding On tamoxifen therapy Endometrial hyperplasia Endometrial metaplasia on pathology Post-op diagnosis: same Procedure & Clinicians Procedure: Procedures Operation Date: 09/23/23 09:00 Actual Procedure Side Surgeon p Laparoscopic Supracervical Hysterectomy with bilateral salpingo-oophorectomy Chantale eLvi MD Indications: 53-year-old with postmenopausal bleeding, endometrial hyperplasia on ultrasound, endometrial metaplasia on endometrial biopsy in the office. Patient is on tamoxifen therapy for an estrogen receptor positive breast cancer. Surgeon: Chantale Levi Tricot Knitter: Mary Beth Winters Anesthesia Type: General and Local Operative Notes Findings: 8 week size anteverted uterus Bilateral simple ovarian cysts Tubes status post ligation Normal liver and gallbladder Normal appendix Closure Type: primary Specimen(s): left tube & ovary, right tube & ovary and uterus Applied: catheter (Removed at the end of the case) Estimated blood loss (mL): 20 Blood products transfused: none Procedure in detail: The patient was taken to the operating room where she was placed in the dorsal supine position. After adequate general endotracheal anesthesia was achieved, she was placed in the dorsal lithotomy position, and prepped and draped in the usual sterile fashion. A timeout was performed. A bivalve speculum was placed into the vagina and the anterior lip of the cervix grasped with a single-tooth tenaculum. The cervical os was sequentially dilated until the ZUMI uterine manipulator could pass easily into the endometrial cavity. The single-tooth tenaculum was removed from the anterior lip of the cervix, and the bivalve speculum was removed from the vagina. Attention was then turned to the abdomen where 6 mL of half percent Marcaine with epinephrine were injected in the umbilical fold. A 5 mm incision was made. The veress needle was placed into the peritoneal cavity, and its placement confirmed by aspiration and drop test. The abdomen was insufflated with 3.2 L of carbon dioxide gas. The veress needle was removed. A 5 mm trocar was placed without difficulty. 2 other incisions were made 4 cm lateral to the umbilicus after 5 mL of half percent Marcaine with epinephrine were injected. These were 5 mm incisions. Two, 5 mm trocars were placed under direct visualization. The right tube and ovary were grasped with an atraumatic grasper. Using the power seal the mesosalpinx was cauterized and cut all the way down to the cornua of the uterus. The cornua of the uterus was then grasped with an atraumatic grasper. The round ligament and broad ligament were cauterized and cut with the power seal. Hemostasis was achieved. The bladder flap was created using the power seal with cautery and cut senior care across. The uterine arteries on the right side were extensively cauterized with the power seal. All of this was repeated on the left side. The remainder of the bladder flap was created using the power seal, and the bladder taken down off the lower uterine segment and cervix. Using the Linaloop, the cervix was amputated from the uterus 2 cm above the uterosacral ligaments, after the ZUMI uterine manipulator was removed from the uterus and a moistened sponge stick was placed in the vagina. There was a small amount of bleeding noted from the right edge of the cervix, and this was cauterized for hemostasis. Using the spatula cautery, the endocervical canal was extensively cauterized. 6 mL of half percent Marcaine with epinephrine were injected above the pubic symphysis. A 12mm incision was made. A 12 mm trocar was placed under direct visualization. An Endobag was placed through the suprapubic incision and the uterus, tubes, and ovaries were placed into the Endobag. The trocar was removed. The edges of the endobag were brought up through the skin. The uterus was grasped with a Lucas clamp. The Brenton was placed into the endobag. The uterus was hand morcellated in approximately 15 pieces. The tubes and ovaries were also removed from the Endobag. The Endobag with the Brenton was removed from the peritoneal cavity. Gas. The fascia was closed on the suprapubic incision using 0 Vicryl in a running fashion. The abdomen was re-insufflated with carbon dioxide The pelvis was copiously irrigated with warm normal saline. No bleeding was noted. 20 mL of 0.2% ropivacaine were placed over the pelvic pedicles. The instruments were removed from the abdomen. The CO2 was allowed to escape. Two simple interrupted sutures with 3-0 Vicryl were placed in the suprapubic incision to close the subcutaneous layer. All of the incisions were closed with 4-0 Biosyn in a subcuticular fashion. Steri strips and Allevyn dressings were placed over the incisions. The moistened sponge stick was removed from the vagina. Sponge, lap, and instrument counts were correct x 2. The patient tolerated the pro cedure well, was taken to PACU in stable condition. Complications: none Post-operative Condition: stable Disposition: PACU Plan for aftercare: To Acute Care after Recovery
--- NOTE | 2023-09-23 13:17 | PC.NURSE ---
Addendum entered by Hattie Arciniega R.N. 09/23/23 17:19: Patient up and amublated in her room, up to the bathroom to void now and son is visiting in room. Steady on her feet. Original Note: Assess- Patient is alert and oriented x4, she has 4 small incisions with allevyn dressings applied to areas, all are cdi. Patient has a michael pad in place with no bleeding at this time. She had toradol and tylenol down in the pacu. Will get patient up a bit later to see how she ambulates and when she needs to use the restroom. Visiting with her son at this time.
[2023-09-23] MEDS: LACTATED RINGERS 1,000 ML 100 ML IV (16:02)
[2023-09-23] MEDS: KETOROLAC 30 MG/ML VIAL IV (18:04)
[2023-09-23] MEDS: ACETAMINOPHEN 325 MG TABLET 650 MG PO (18:05)
[2023-09-23] MEDS: DOCUSATE 100 MG CAPSULE 200 MG PO (20:27)
[2023-09-24] VITALS: BP 105/63; PULSE 80; RESP 16; TEMP 36.4; O2SAT 94
[2023-09-24] MEDS: LACTATED RINGERS 1,000 ML 100 ML IV
[2023-09-24 04:00] VITALS: BP 110/64; PULSE 72; RESP 16; TEMP 36.6; O2SAT 98
[2023-09-24 05:10] LABS: Add Manual Diff / Slide Review NO; Basophils Absolute Auto 0 /uL (0-100); Basophils Percent Auto 0.1 % (0-2); Eosinophils Absolute Auto 0 /uL (0-450); Hematocrit 28.9 % (36-46); Hemoglobin 9.7 g/dL (12.0-16.0); Lymphocytes Absolute Auto 1800 /uL (1100-4500); Lymphocytes Percent Auto 14.9 % (25-40); Mean Corpuscular HGB Conc 33.4 % (30-36); Mean Corpuscular Hemoglobin 28.7 PG (26-34); Mean Corpuscular Volume 85.8 fL (80-100); Monocytes Absolute Auto 1000 /uL (0-900); Monocytes Percent Auto 8.4 % (3-14); Neutrophils Absolute Auto 9300 /uL (1500-7000); Neutrophils Percent Auto 76.6 % (50-75); Platelet Count 189 X10^3/uL (150-400); Red Blood Cell Count 3.37 X10^6/uL (4.0-5.2); Red Cell Distribution Width 14.5 % (11.6-14.8); White Blood Cell Count 12.2 X10^3/uL (4.5-11.0)
[2023-09-24] MEDS: ACETAMINOPHEN 325 MG TABLET 650 MG PO ×2 (06:35)
[2023-09-24 08:24] VITALS: BP 125/78; PULSE 64; RESP 16; TEMP 36.6; O2SAT 100
--- NOTE | 2023-09-24 08:27 | PM.DS.1 ---
History of Present Illness History of Present Illness Date Patient Seen: 09/24/23 Time Patient Seen: 07:20 Chief complaint: LSCH/BSO *OPB* Narrative: Patient is a 53-year-old postop day # 1 status post laparoscopic supracervical hysterectomy with bilateral salpingo-oophorectomy. Patient has tolerated a diet. She did throw up once last evening after Toradol. She has voided without the catheter. Her pain is well controlled on Tylenol and Toradol. She has not used any narcotic. She is ambulating without assistance. Discharge Providers Provider Discharge Date: 09/24/23 Primary care physician: Judith Leblanc PA-C Discharge provider: Chantale Leiv MD Summary Hospital Course Discharge Diagnosis: Postmenopausal bleeding Endometrial hyperplasia Tamoxifen therapy for estrogen receptor positive breast cancer Status post laparoscopic supracervical hysterectomy/bilateral salpingo-oophorectomy Hospital Course: Patient is a 53-year-old who presented on September 23, 2023 for a scheduled laparoscopic supracervical hysterectomy with bilateral salpingo-oophorectomy. She underwent this procedure without complication. Her postoperative course was unremarkable. She voided without the catheter. She tolerated a diet. Her pain has been well controlled. She did have 1 episode of vomiting which did not repeat. She is ambulating without assistance. Status at Discharge Cognitive/behavioral status at discharge: oriented Functional status at discharge: independent ambulation Overall status at discharge: patient is progressing back to baseline Time Spent with Patient Time spent: Less than 30 minutes Exam Vital Signs (past 8 hours): - 09/24/23 04:00 09/24/23 08:24 Temperature 97.8 F 97.8 F Pulse Rate 72 64 Respiratory Rate 16 16 Blood Pressure 110/64 125/78 Pulse Oximetry 98 100 Oxygen Flow Rate 0 0 Oxygen Delivery Method Room Air Oxygen Flow Rate 0 Narrative Exam Narrative: Generally: Patient is sitting up in bed, no acute distress Lungs: Clear to auscultation bilaterally Cardiovascular: Regular rate and rhythm Abdomen: Soft and flat. Incisions: Clean dry and intact with Allevyn dressings Extremities: No edema, negative Homans Objective Labs 09/24/23 04:30 Labs: Laboratory Results - last 24 hr 09/24/23 04:30 WBC 12.2 H RBC 3.37 L Hgb 9.7 L Hct 28.9 L MCV 85.8 MCH 28.7 MCHC 33.4 RDW 14.5 Plt Count 189 Neut % (Auto) 76.6 H Lymph % (Auto) 14.9 L [place] % (Auto) 8.4 Eos % (Auto) 0.0 L Baso % (Auto) 0.1 Neut # (Auto) 9300 H Lymph # (Auto) 1800 [place] # (Auto) 1000 H Eos # (Auto) 0 Baso # (Auto) 0 PFSH Medical History (Updated 09/23/23 @ 09:16 by Chantale Levi MD) Fracture, tibial plateau, open Eczema Anxiety and depression Shingles (~2007) Chicken pox (~1982) Hearing loss Abnormal Pap smear of cervix (~2017) Hemorrhoid Closed fracture of upper end of tibia Surgical History (Updated 09/18/23 @ 11:54 by Krissy Beal RN) Hx of colonoscopy (08/16/23) History of hysteroscopy (07/18/23) Anesthesia History of mastectomy (~09/09/18) Fracture of left tibial plateau (~04/23/14) Status post surgery (08/05/15) History of third molar tooth extraction Status post tubal ligation (~11/2009) Family History Grandmother Colon cancer Cervical cancer Grandfather Esophageal cancer Diabetes mellitus Father Hypertension Mother Hyperlipidemia Hypertension Grandfather Hypertension Stroke Grandmother Congestive heart failure History of heart disease Hypertension Hyperlipidemia Stroke Social History household members: none Smoking Status: Never smoker alcohol intake: current Discharge Assessment & Plan Assessment and Plan Assessment: Assessment: 53-year-old postop day # 1 status post laparoscopic supracervical hysterectomy with bilateral salpingo-oophorectomy doing very well Plan of Treatment: Plan: Discharge to home Follow-up in 2 weeks for telehealth postop visit Patient is to call with fever, chills, redness or drainage around the incisions, or bleeding vaginally more than spotting to light Discharge Plan Discharge Plan Patient Disposition: Home Provider Discharge Comment: Fever, chills, redness or drainage around the incisions, or bleeding vaginally more than spotting to light Ibuprofen 600 mg every 6 hours as needed Tylenol 650 mg every 6 hours as needed Discharge orders & Medications Discharge Orders: Discharge (Order); Ordered 09/24/23 Ordered By: Chantale Levi Prescriptions: Continued aspirin 81 mg Tablet,Delayed Release (Dr/Ec) 81 mg PO DAILY cholecalciferol (vitamin D3) 50 mcg (2,000 unit) capsule 50 mcg PO DAILY tamoxifen 20 mg tablet 20 mg PO DAILY Follow up/Referrals: Chantale Levi MD [Physician] - (Patient already has postop visits schedule) Diet/Activity/Treatments Diet: Regular Activity: Nothing in the vagina for 6 weeks No heavy lifting, more than 8 lb, for the first few days Skin/Wound/Dressing Care Report to your healthcare provider any signs of infection, such as:: chills, fever, increased pain, unusual drainage and unusual redness Dressing: Remove outer pink dressings with attached gauze in 3 days after morning shower May shower day Visit Report/Discharge Packet Instructions: DI for Hysterectomy, DI for Laparoscopy, DI for Prescription Opioid Use Stand Alone Forms: Patient Portal/API, Surgery Discharge Discharge Data Primary Care Provider: Judith Leblanc Attending Provider: Chantale Levi Quality VTE Deep Vein Thrombosis/Pulmonary Embolism Present on Admission: No
--- NOTE | 2023-09-24 08:40 | PC.NURSE ---
Assess- Patient has 4 small incisions with allevyn bandages. They are all cdi, she has minimal bleeding to michael pad and is voiding. Patient will be discharging soon to catch a [id number] ferry to [facility]. Will be given ibuprofen prior to leaving.
[2023-09-24] MEDS: IBUPROFEN 600 MG TABLET PO (08:53)
[2023-09-24] MEDS: DOCUSATE 100 MG CAPSULE 200 MG PO (08:53)
--- NOTE | 2023-09-24 17:18 | CM.DANOTE ---
Brief DCP Assessment Note Patient is a 53yo F here for a scheduled laparoscopic supracervical hysterectomy with bilateral salpingo-oophorectomy. PCP Judith Solorio and self pay VICE ADMIRAL reviewed EMR. Patient d/c prior to being seen by this author. Per chart review, patient is IADLs and is ambulating independently. No needs identified at this time. Plan: home to [place], transport with self/family in [place]. No needs identified at this time. JARRET Cuevas Discharge Planning/Care Management CM Discharge Assessment Start: 09/24/23 17:16 Freq: Status: Active Protocol: Document 09/24/23 17:16 SL (Rec: 09/24/23 17:18 SL [id number]) Discharge Planning Assessment Assigned Bag Filler JARRET Turner DPOA/Assigned Designee Name Aurelia Leggett (mother) Contact Information [phone] Advance Directives? No Advance Directives on File No History Provided By Medical Record Prior Living Arrangements House Household Members none Independent with ADL's Yes Is patient alert and oriented? Yes Barriers to Discharge No Discharge Plan Home Whiteboard Updated in Patient Room with No name and ext. # of Bag Filler Review Status In Process Next Review Type Continued Stay Review Pre-Anesthesia Assessment Start: 09/18/23 11:49 Freq: Status: Discharge Protocol: Document 09/18/23 11:50 CAB (Rec: 09/18/23 11:55 CAB [id number]) Pre-Anesthesia Assessment Patient Information Reviewed Via Chart Review Primary Care Provider Judith Leblanc Seen Specialist in Last 12 Months Yes Specialist Seen Emergency,Team Guide Primary Language Nigerian Preferred Language Nigerian Implementation Project Coordinator Required No Height 166.37 cm Weight 96.162 kg Body Mass Index (BMI) 34.7 Hearing Ability Normal Visual Impairment No Limitations Barriers to Learning None Hx Anesthesia Reactions Yes: PONV Hx Family Anesthesia Reaction No Hx Malignant Hyperthermia No Hx Blood Transfusion Reaction No Anesthesia Review Requested No Crystal Grower No alcohol intake current alcohol intake frequency holidays/special occasions only Smoking Status Never smoker Substance Use Type does not use Patient is completely paralyzed or No completely immobile Mental Status Oriented to own ability Hx Sleep Apnea No CPAP/BIPAP use not prescribed Currently Taking a Beta Brad No Anti-Coagulant Therapy Yes: ASA 81mg Cardiac Testing No Hx Pacemaker/ICD No Urinary Catheter Present No Hx Urinary Self Catheterization No Diabetes No Patient No Lactating No Presence of External or Internal Medical Yes: left knee, right breast Devices Received a COVID vaccine? Yes Marital Status Single Lives With none Patient Discharge Plan Description Return Home Comment Lives on [facility] Proxy/Next of Kin Aurelia Leggett (mother) Health Care Proxy Emergency Contact Name Aerial (DTR) Emergency Contact Advance Directives? No Advance Directives on File No Power of Case Repairer No
== END 2023-09-24 09:36 | disposition home or self-care (01) ==
LOC: OR 07:17 → AC 07:18
PROVIDERS: PCP Physician Assistant; Referring Provider Obstetrics & Gynecology; Visit Provider Obstetrics & Gynecology
PROC: 0UT94ZL Resection of Uterus, Supracervical, Percutaneous Endoscopic Approach (ICD-10-PCS; CPT 58542; principal; 2023-09-23 09:00)
DX: N95.0 Postmenopausal bleeding (principal); C50.919 Malignant neoplasm of unspecified site of unspecified female breast; Z79.810 Long term (current) use of selective estrogen receptor modulators (SERMs)
CPT/HCPCS: 58542; 36415; 85025; J0131; J0171; J0690; J1100; J1170; J1885; J2250; J2405; J2704; J3010

== ENCOUNTER → 2024-05-20 09:00 | Outpatient (CLI) | payer OTHER, SELFPAY ==
[2024-05-18 10:22] VITALS: BMI 34.7
[2024-05-20 21:21] LABS: Cholesterol 244 mg/dL (140-199); Glucose 105 mg/dL (70-100); Triglycerides 67 mg/dL (35-150)
[2024-05-20 21:42] LABS: HDL Cholesterol 148 mg/dL (40-60); LDL Cholesterol Calculated 83 mg/dL (<100)
[2024-05-22 03:40] LABS: Hemoglobin A1C% w Est Avg Glu 5.6 % (4.0-6.0)
== END ==
PROVIDERS: PCP Physician Assistant; Visit Provider Family Medicine
DX: Z13.1 Encounter for screening for diabetes mellitus (principal); Z13.6 Encounter for screening for cardiovascular disorders; L97.519 Non-pressure chronic ulcer of other part of right foot with unspecified severity
CPT/HCPCS: 80061; 82947; 83036

== ENCOUNTER → 2024-10-29 11:04 | Outpatient (CLI) | payer OTHER, SELFPAY ==
[2024-05-18 10:22] VITALS: BMI 34.7
[2024-10-29 20:07] LABS: Add Manual Diff / Slide Review NO; Basophils Absolute Auto 0 /uL (0-100); Basophils Percent Auto 0.7 % (0-2); Eosinophils Absolute Auto 100 /uL (0-450); Eosinophils Percent Auto 0.8 % (2-4); Hematocrit 39.2 % (36-46); Lymphocytes Absolute Auto 1900 /uL (1100-4500); Lymphocytes Percent Auto 28.9 % (25-40); Mean Corpuscular HGB Conc 33.2 % (30-36); Mean Corpuscular Hemoglobin 29.8 PG (26-34); Mean Corpuscular Volume 89.8 fL (80-100); Monocytes Absolute Auto 600 /uL (0-900); Neutrophils Absolute Auto 3900 /uL (1500-7000); Neutrophils Percent Auto 60.6 % (50-75); Platelet Count 191 X10^3/uL (150-400); Red Blood Cell Count 4.36 X10^6/uL (4.0-5.2); Red Cell Distribution Width 13.9 % (11.6-14.8); White Blood Cell Count 6.5 X10^3/uL (4.5-11.0)
[2024-10-29 20:21] LABS: Alanine Aminotransferase 19 IU/L (<35); Albumin 3.9 g/dL (3.5-5.0); Albumin Globulin Ratio 1.4 (1.0-2.8); Alkaline Phosphatase 66 U/L (38-126); Aspartate Aminotransferase 25 IU/L (14-36); BUN Creatinine Ratio 13.6 (6-22); Bilirubin Total 0.4 mg/dL (0.2-1.3); Bilirubin Unconjugated 0.2 mg/dL (0.0-1.1); Blood Urea Nitrogen 8 mg/dL (7-17); Calcium 9.3 mg/dL (8.4-10.2); Carbon Dioxide 29 mmol/L (22-32); Chloride 99 mmol/L (98-107); Estimated Glomerular Filt Rate > 60 mL/min (>60); Globulin 2.8 g/dL (1.7-4.1); Glucose 96 mg/dL (70-100); HEMOLYSIS < 15 (0-50); Potassium 4.1 mmol/L (3.4-5.1); Sodium 131 mmol/L (137-145); Total Protein 6.7 g/dL (6.3-8.2)
== END ==
PROVIDERS: PCP Physician Assistant; Visit Provider Internal Medicine Hematology & Oncology
DX: C50.111 Malignant neoplasm of central portion of right female breast (principal); R79.89 Other specified abnormal findings of blood chemistry; Z17.0 Estrogen receptor positive status [ER+]; D64.9 Anemia, unspecified
CPT/HCPCS: 80053; 80076; 85025

== ENCOUNTER → 2025-08-12 09:01 | Outpatient (CLI) | payer OTHER, SELFPAY ==
[2024-05-18 10:22] VITALS: BMI 34.7
[2025-08-12 18:35] LABS: Add Manual Diff / Slide Review NO; Hematocrit 38.6 % (36-46); Hemoglobin 13.0 g/dL (12.0-16.0); Lymphocytes Absolute Auto 1900 /uL (1100-4500); Mean Corpuscular HGB Conc 33.8 % (30-36); Mean Corpuscular Hemoglobin 29.7 PG (26-34); Mean Corpuscular Volume 87.9 fL (80-100); Platelet Count 213 X10^3/uL (150-400)
[2025-08-12 19:08] LABS: Blood Urea Nitrogen 16 mg/dL (7-17); Calcium 9.3 mg/dL (8.4-10.2); Carbon Dioxide 28 mmol/L (22-32); Chloride 104 mmol/L (98-107); Cholesterol 223 mg/dL (140-199); Estimated Glomerular Filt Rate > 60 mL/min (>60); Glucose 103 mg/dL (70-99); HDL Cholesterol 101 mg/dL (40-60); HEMOLYSIS < 15 (0-50); Potassium 4.6 mmol/L (3.4-5.1); Sodium 136 mmol/L (137-145); Triglycerides 52 mg/dL (35-150)
[2025-08-12 19:42] LABS: Ferritin 41 ng/mL (11-264)
[2025-08-12 20:05] LABS: Hemoglobin A1C% w Est Avg Glu 5.7 % (4.0-6.0)
== END ==
PROVIDERS: PCP Physician Assistant; Visit Provider Family Medicine
DX: E78.00 Pure hypercholesterolemia, unspecified (principal); R73.9 Hyperglycemia, unspecified; R03.0 Elevated blood-pressure reading, without diagnosis of hypertension; D64.9 Anemia, unspecified
CPT/HCPCS: 80048; 80061; 82728; 83036; 85025